=== PATIENT | male | born 1940 | race Caucasian/White ===

== ENCOUNTER 2017-01-03 04:52 | Inpatient (IN) | payer OTHER, BC ==
--- NOTE | 2016-12-24 08:42 | HISTORY & PHYSICAL EXAMINATION ---
DATE OF ADMISSION: CHIEF COMPLAINT: Right knee pain. HISTORY OF PRESENT ILLNESS: Mr. Kebede is a pleasant 76-year-old male with a 3-4 month history of right knee pain. The patient rates his pain at 8/10. He has pain with his daily activities. He has limited standing and walking tolerance. Pain is worse with weightbearing. The patient uses a cane to ambulate on a daily basis. He has failed injections and anti-inflammatories. He is unable to perform home exercise program due to pain. He has currently failed conservative treatment and is scheduled for elective right knee replacement with Dr. Buchanan. PAST MEDICAL HISTORY: Hypertension, borderline diabetes with A1c of 6.2. He denies heart disease or DVT. PAST SURGICAL HISTORY: Right knee arthroscopy. SOCIAL HISTORY: The patient denies alcohol or tobacco use. He lives in a 2-story home with his and is retired. FAMILY HISTORY: Negative for DVT. MEDICATIONS: Lipitor 40 mg daily, atenolol 50 mg daily, amlodipine 10 mg daily, losartan 100 mg daily, Tylenol 1000 mg p.r.n., aspirin 81 mg daily. ALLERGIES: PENICILLIN, TETRACYCLINE, OFLOXACIN AND CODEINE. REVIEW OF SYSTEMS: See HPI. Ten other systems reviewed, all negative. PHYSICAL EXAMINATION: VITAL SIGNS: Height 5 feet 10 inches, weight 235 pounds, BMI is 34. GENERAL: This is a well-developed, well-nourished male who is alert and oriented x3. Mood and affect are appropriate. HEENT: Normocephalic, atraumatic. Mucous membranes are moist and intact. NECK: Supple without lymphadenopathy. HEART: Regular rate and rhythm without murmurs, rubs or gallops. LUNGS: Clear to auscultation without wheezes or rhonchi. ABDOMEN: Soft and nontender. Bowel sounds are equal and active. EXTREMITIES: No ecchymosis, redness or warmth. He has varus deformity. He has moderate effusion. Range of motion is from 5-110 degrees with +2 laxity mediolaterally. He is neurovascularly intact with +1 distal edema. X-RAY EXAMINATION: AP and lateral views show joint space narrowing and osteophyte formation. IMPRESSION: Degenerative joint disease, right knee. PLAN: The patient will be admitted for a right total knee arthroplasty with Dr. Buchanan. We will plan on aspirin for DVT prophylaxis. The patient is going to use [facility] for home physical therapy postoperatively.
[2016-12-24 10:03] VITALS: BMI 33.0
--- NOTE | 2016-12-24 10:33 | PAT Medication Instructions ---
Service Date Dec 24, 2016. Current Home Medication List Amiloride/Hctz (Amiloride/Hydrochlorothia 5-50 mg), 0.5 TAB PO QAM Amlodipine Besylate (Norvasc), 10 MG PO QAM Aspirin (Aspirin Ec), 81 MG PO HS Atenolol (Tenormin), 100 MG PO QAM Atorvastatin (Lipitor), 40 MG PO QAM Losartan Potassium (Cozaar), 100 MG PO QAM Metformin Hcl (Glucophage), 500 MG PO for AM Naproxen (Naprosyn), 500 MG PO BID PRN for Pain [Vitamin D], 1 TAB PO QPM Medication Instructions For Your Scheduled Surgery - Check with surgeon for instructions: Naproxen (Naprosyn), 500 MG PO BID PRN for Pain - Hold the following medications 48 hours prior to surgery: Metformin Hcl (Glucophage), 500 MG PO for AM - Hold the following medications the morning of surgery: Amiloride/Hctz (Amiloride/Hydrochlorothia 5-50 mg), 0.5 TAB PO QAM Losartan Potassium (Cozaar), 100 MG PO QAM - Take the following medications the morning of surgery with a sip of water: Atenolol (Tenormin), 100 MG PO QAM Atorvastatin (Lipitor), 40 MG PO QAM Amlodipine Besylate (Norvasc), 10 MG PO QAM - Take the following medications as scheduled the night before surgery: [Vitamin D], 1 TAB PO QPM Aspirin (Aspirin Ec), 81 MG PO HS If you have any questions please call us at [phone] or [phone] or [phone]
--- NOTE | 2016-12-24 11:12 | DIAGNOSTIC IMAGING REPORT ---
TWO VIEW CHEST CLINICAL HISTORY: Preoperative examination. FINDINGS: PA and lateral chest radiographs are compared to study dated 10/19/2015. The heart is mildly enlarged. The pulmonary vasculature is noncongested. There is atherosclerotic calcification of the thoracic aorta. There are low lung volumes with elevation of the right hemidiaphragm and bibasilar atelectasis. No airspace consolidation is seen typical for pneumonia and there is no pleural effusion. A right apical pulmonary nodule is questioned. There is no pneumothorax. The skeletal structures are osteopenic. Degenerative change and DISH are noted in the thoracic spine. IMPRESSION: 1. Cardiomegaly and low lung volumes. There is no active disease in the chest. 2. There is a questionable right apical nodular density. This is nonspecific and may represent artifact. Correlation with a CT scan of the chest is recommended for further interrogation and to exclude underlying pulmonary lesion. Electronically signed by: Shemar Spencer M.D. 12/24/2016 11:10 AM Dictated Date/Time: 12/24/2016 11:08 AM
[2016-12-24 11:20] LABS: BASO % 0.4 %; BASO ABS # 0.02 K/uL (0-0.2); COMPLETE YES; EOS % 2.1 %; HEMATOCRIT 43.2 % (42-52); IG% 0.2 %; LYMPH % 23.7 %; LYMPH ABS # 1.27 K/uL (1.2-3.4); MEAN CELL VOLUME 86.4 fL (80-100); MEAN CORPUSCULAR HEMOGLOBIN 29.6 pg (25-34); MEAN CORPUSCULAR HGB CONC 34.3 g/dl (32-36); MEAN PLATELET VOLUME 10.6 fL (7.4-10.4); NEUT % 67.6 %; PLATELET COUNT 125 K/uL (130-400); WHITE BLOOD COUNT 5.36 K/uL (4.8-10.8)
[2016-12-24 11:23] LABS: URINE APPEARANCE CLEAR (CLEAR); URINE BILIRUBIN NEG (NEG); URINE COLOR YELLOW; URINE EPITHELIAL CELL AUTO >30 /lpf (0-5); URINE NITRITE NEG (NEG); URINE PH 6.5 (4.5-7.5); URINE SPECIFIC GRAVITY 1.017 (1.000-1.030); UROBILINOGEN NEG (NEG)
[2016-12-24 11:24] LABS: MANUAL MICROSCOPIC REQUIRED? NO; REVIEW REQ? YES
[2016-12-24 11:28] LABS: INR 1.1 (0.9-1.1); PARTIAL THROMBOPLASTIN RATIO 1.1; PROTHROMBIN TIME (PATIENT) 11.3 SECONDS (9.0-12.0)
[2016-12-24 12:45] LABS: CREATININE 0.8 mg/dl (0.60-1.40)
[2016-12-24 12:46] LABS: BUN/CREATININE RATIO 20.1 (10-20); CALCIUM 8.8 mg/dl (8.5-10.1); POTASSIUM 3.9 mmol/L (3.5-5.1)
[2016-12-24 13:59] LABS: ESTIMATED AVERAGE GLUCOSE 160 mg/dl; HA1C FLAG Normal (Normal)
[~2017-01-03] VITALS: Ht 177.8 cm; Wt 106.5 kg
[2017-01-03] VITALS (9 sets, daily range): BP systolic 119–154; BP diastolic 62–80; PULSE 62–82; TEMP 36.5–37.1; O2SAT 93–97; Ht 177.8 cm; Wt 106.5 kg
[~2017-01-03 04:52] MED LIST: AMLH/550 PO; AMLO10TA4 PO; ASPI81TA28 PO; ATEN100T PO; ATOR-24 PO; GLC/500 PO; LOSA1TAB38 PO; NAPR-1169 PO; VITAMIN D PO
[2017-01-03] MEDS ORDERED: CeleBREX 200 MG CAP PO SCH (06:00)
[2017-01-03] MEDS ORDERED: DEXAMETHASONE 4 MG TAB PO SCH (06:00)
[2017-01-03] MEDS ORDERED: GABAPENTIN 300 MG CAP PO SCH (06:00)
[2017-01-03] MEDS ORDERED: LACTATED RINGER'S 1000ML 500 ML IV ONE (06:00)
[2017-01-03] MEDS ORDERED: METOCLOPRAMIDE HCL 10 MG TAB PO SCH (06:00)
[2017-01-03] MEDS ORDERED: LACTATED RINGER'S 1000ML 1,000 ML IV SCH (06:00)
[2017-01-03] MEDS ORDERED: ACETAMINOPHEN 500 MG TAB PO SCH (06:00)
[2017-01-03] MEDS ORDERED: LACTATED RINGER'S 1000ML IV SCH (06:00)
[2017-01-03] MEDS ORDERED: CEFAZOLIN 2000MG IV PUSH 10 ML IV SCH (06:00)
[2017-01-03] MEDS ORDERED: ROPIVACAINE 5MG/ML 30 ML 150 MG, BUPIVACAINE 0.5% MPF INJ 30 ML, EpINEphrine HCL INJ 0.... INFIL SCH ×8 (06:00)
[2017-01-03] MEDS ORDERED: CLINDAMYCIN 600 MG/54 ML D5W 54 ML IV SCH (06:00)
[2017-01-03] MEDS ORDERED: FAMOTIDINE 20 MG TAB PO SCH (06:00)
[2017-01-03] MEDS: TRANEXAMIC ACID INJ 1,000 MG in SODIUM CHLORIDE 0.9% 100ML 100 ML IV SCH ×2 (06:01→06:15)
[2017-01-03] MEDS ORDERED: BUPIVACAINE 0.5 % 5 MG/1 ML PF 10ML VIAL ONE (06:31)
[2017-01-03] MEDS ORDERED: ROPIVACAINE 0.5% 5 MG/ML 30 ML VIAL ONE (06:31)
[2017-01-03] MEDS ORDERED: POVIDONE-IODINE OP SOLN 30 ML BTL ONE (06:41)
[2017-01-03] MEDS ORDERED: ORTHO JOINT ANESTHETIC ONE (06:41)
[2017-01-03] MEDS ORDERED: BACITRACIN 50000 UNIT VIAL ONE (06:41)
[2017-01-03] MEDS ORDERED: FENTANYL CITRATE INJ 50 MCG/1 ML 2 ML VIAL ONE (06:43)
[2017-01-03] MEDS ORDERED: MIDAZOLAM HCL 1 MG/ML 2ML VIAL ONE (06:43)
--- NOTE | 2017-01-03 07:07 | History & Physical Bridge Note ---
H&P Re-Evaluation Bridge Note: I have examined the patient, reviewed the History & Physical and in the interval since the performance of the History & Physical I have noted the following changes of clinical significance: No changes noted
[2017-01-03] MEDS ORDERED: HYDROmorphone INJ 2 MG/ML SYR/VIAL IV PRN (07:30)
[2017-01-03] MEDS ORDERED: ONDANSETRON INJ 2 MG/ML 2 ML VIAL IV PRN ×2 (07:30→08:45)
[2017-01-03] MEDS ORDERED: ATROPINE SULFATE 0.1 MG/ML 5ML SYR IV PRN (07:30)
[2017-01-03] MEDS ORDERED: PHENYLEPHRINE 100MCG/ML 5ML SYR IV PRN (07:30)
[2017-01-03] MEDS ORDERED: EpHEDrine SULFATE INJ 50 MG/ML AMP IV PRN (07:30)
[2017-01-03] MEDS ORDERED: LIDOCAINE HCL 2% 2 ML VIAL (20MG/ML) ONE (07:49)
[2017-01-03] MEDS ORDERED: PROPOFOL IV EMULSION 10 MG/ML 20 ML VIAL IV ONE (07:49)
[2017-01-03] MEDS ORDERED: ONDANSETRON INJ 2 MG/ML 2 ML VIAL ONE (07:49)
--- NOTE | 2017-01-03 08:11 | [facility] Operative Report ---
Operative Report Operative Date Jan 03, 2017. Pre-Operative Diagnosis Right knee degenerative joint disease Post-Operative Diagnosis same as pre-operative Procedure(s) Performed Right total knee arthroplasty-cemented Jennifer Chaudhry nephew en bloc total knee arthroplasty size 6 femur 6 tibia Poly-[address] Jovan Buchanan Doors Prefitter Surgeon(s) ZEINAB Sewell and Dr. Ni Estimated Blood Loss 5 mL Findings Patient presents with severe end-stage varus alignment DJD subchondral sclerosis osteophyte formation Nourse wants to conservative therapy. Specimens Specimen A: Right knee bone and tissue Complication(s) None Disposition Recovery Room / PACU Indications Patient presented failed attempts at conservative management with varus alignment right knee subchondral sclerosis cystic changes and marginal osteophytes DJD (conservative management including physical therapy anti- inflammatories relative rest and presents for total knee arthroplasty Description of Procedure After proper prepping and draping of the Right lower extremity anterior midline incision was made over the region of the extensor extensor mechanism after meticulous hemostasis was obtained and maintained in subcutaneous tissues a medial parapatellar incision was made The patella was subluxed lateralward the medial lateral gutter were cleaned from any hypertrophic synovitis and scar tissue of the distal femoral block was placed and the distal femoral osteotomy cut was made subsequently the chamfers anterior and posterior osteotomy cuts were made utilizing the 4-in-1 block the tibia was subsequently subluxed anteriorward medial and ateral meniscal remnants were excised in their entirety remnants of the anterior and posterior cruciate ligaments were excised in their entirety excellent exposure of the proximal tibia was obtained the tibial osteotomy guide was placed on the proximal tibial osteotomy cut was made once again the knee was irrigated with copious amounts of sterile saline solution the patella was subsequently everted lateralward thickened scar tissue around the patella was removed the patella was subsequently cut utilizing a freehand technique and was drilled prepared for final preparation and placement of patella socially flexion-extension gaps were checked and the equal and symmetric trials were placed to the appropriate femoral and tibial trials with poly-spacer being placed for equal flexion and extension gaps and full range of motion including extension to 0 and flexion to 140 the trial components after having been taken to recovery range of motion was subsequently removed meticulous hemostasis was obtained and maintained subsequently a knee block injection of joint cocktail including ropivacaine 0.5% 150 mg. Bupivacaine 0.5 % epinephrine 1-200,030 mL's toradol 30 mg dexamethasone 4 mg ketamine 10 mg clonidine 100 micrograms normal saline solution 30 mg was infiltrated into the soft tissues of the posterior knee medial lateral gutters and periosteal synovium special attention was paid to protect neurovascular structures at all times subsequently trial components having been removed the knee was irrigated with sterile saline solution. debris was removed the proximal tibia was subsequently prepared and was made ready for the placement of the tibial component tibial component was also cemented and tamped into position the femoral component was subsequently placed and cemented in the position the patellar component was subsequently cemented in position because hemostasis once again obtained and maintained wound having been thoroughly irrigated with debridement and debridement lavage was performed as well as a medial parapatellar incision closed with #1 Vicryl in interrupted fashion subcutaneous was closed with #2 Vicryl skin was closed with skin clips. DR Rocha and JAKE were necessary for prepping and drapping as well as wound closure of deep fascia Sub cutaneous tissue and skin and was necessary for the case. A sterile compressive dressing was placed patient was taken to recovery in stable condition of report dictated by Dewayne I attest to the content of the Intraoperative Record and any orders documented therein. Any exceptions are noted below. I attest to the content of the Intraoperative Record and any orders documented therein. Any exceptions are noted below.
[2017-01-03] MEDS ORDERED: ZOLPIDEM TARTRATE 5 MG TAB PO PRN (08:45)
[2017-01-03] MEDS ORDERED: OXYCODONE HCL IR 5 MG TAB (IMMEDIATE RELEASE) PO PRN (08:45)
[2017-01-03] MEDS ORDERED: ALUMINUM/MAGNESIUM/SIMETH (MAALOX MAX) 30 ML UDC PO PRN (08:45)
[2017-01-03] MEDS ORDERED: SOD PHOSPHATE/SOD BIPHOSPHATE ENEMA 132 ML BTL PR PRN (08:45)
[2017-01-03] MEDS ORDERED: MoRPHine SULFATE 2 MG/ML CARP IV PRN (08:45)
[2017-01-03] MEDS ORDERED: BISACODYL 10 MG SUPP PR PRN (08:45)
[2017-01-03] MEDS ORDERED: MAGNESIUM HYDROXIDE SUSP 30 ML UDC PO PRN (08:45)
[2017-01-03] MEDS ORDERED: PHARMACY GLYCEMIC MGMT CONSULT PRN (09:18)
--- NOTE | 2017-01-03 09:29 | DIAGNOSTIC IMAGING REPORT ---
R KNEE 1 OR 2 VIEWS ROUTINE CLINICAL HISTORY: Degenerative arthritis COMPARISON: None. DISCUSSION: There are postsurgical changes of a total right knee arthroplasty and patellar resurfacing. Overlying surgical drains are evident. The femoral and tibial components appear well seated. There is air in soft tissues consistent with recent surgery IMPRESSION: Postsurgical changes of a total right knee arthroplasty. Electronically signed by: Arnold Redd M.D. 01/03/2017 9:28 AM Dictated Date/Time: 01/03/2017 9:27 AM
--- NOTE | 2017-01-03 09:53 | Anesthesiology Progress Note ---
Anesthesia Post Op Note Date & Time Jan 03, 2017 at 09:53 Vital Signs Pain Intensity: 0 Vital Signs Past 12 Hours Date Time Temp Pulse Resp B/P (MAP) Pulse Ox O2 Delivery O2 Flow Rate FiO2 01/03/17 09:40 36.6 63 18 118/63 94 Nasal Cannula 2 01/03/17 09:30 62 16 122/65 93 Nasal Cannula 2 01/03/17 09:20 63 18 120/67 95 Nasal Cannula 2 01/03/17 09:10 62 16 115/62 93 Nasal Cannula 2 01/03/17 09:00 37.5 66 14 116/67 96 Nasal Cannula 2 01/03/17 08:50 67 20 113/63 94 Nasal Cannula 2 01/03/17 08:40 36.7 67 16 91/65 97 Oxymask 10 01/03/17 05:40 37.1 69 20 138/80 93 Room Air Notes Mental Status: alert / awake / arousable, participated in evaluation Pt Amnestic to Procedure: Yes Nausea / Vomiting: adequately controlled Pain: adequately controlled Airway Patency, RR, SpO2: stable & adequate BP & HR: stable & adequate Hydration State: stable & adequate Anesthetic Complications: no major complications apparent
[2017-01-03] MEDS ORDERED: DEXTROSE 50% 50 ML SYR IV PRN (10:30)
[2017-01-03] MEDS ORDERED: GLUCOSE 40% GEL 15 GM TUBE PO PRN (10:30)
[2017-01-03] MEDS ORDERED: GLUCAGON FOR INJ 1 MG VIAL SQ PRN (10:30)
[2017-01-03] MEDS ORDERED: GLUCOSE 10 TABS/TUBE PO PRN (10:30)
--- NOTE | 2017-01-03 10:50 | Pharmacy Progress Note ---
Glycemic Control Intl Consult Date of Service Jan 03, 2017. Scope Glycemic Pharmacist consulted by Aziza Paul on 01/03/17 for glycemic control and to write orders per [facility] inpatient glycemic control protocol Objective Weight (Kilograms): 106.500 Accuchecks BSG (last 24hrs): Test 01/03/17 05:40 01/03/17 08:46 Bedside Glucose 161 mg/dl (70-99) 175 mg/dl (70-99) HbA1c Test 12/24/16 10:38 Hemoglobin A1c 7.2 % (4.5-5.6) H Recent Pertinent Medications Outpatient Anti-diabetic Regimen: * metformin 500 mg po qAM prn * A1c = 7.2 % 12/24/16 Risk Factors for Insulin Resistance: * Steroids: Orthomix (contains Dex 4 mg) + Dexamethasone 8 mg PO pre-op, 8 mg PO on POD #1 * Recent Surgery: POD #0 R-TKA * Diet: T2DM Assessment & Plan ASSESSMENT: * 76 yr old T2DM male admitted for R TKA. * Most recent A1c of 7.4% managed on metformin as an outpatient. * Will hold oral agents for admission and utilize SQ basal bolus insulin regimen which is the recommended regimen for inpatient glycemic control. * Will initiate weight based insulin dosing for insulin kat patient and titrate based on BSG trends. * Will be aggressive with dosing on POD #0 due to potential for steroid induced hyperglycemia. * ADA & AACE recommend a goal blood sugar range 140-180 mg/dl for the majority of critically ill & non-critically ill patients. However, more stringent targets may be selected in individual cases. Will utilize more stringent goal of 110-140mg/dl based on patient age & comorbidities. Additionally, tighter glycemic control is warranted to facilitate wound/infection healing. PLAN FOR INPATIENT GLYCEMIC CONTROL: * Holding outpatient oral diabetes medications * Basal insulin * Lantus 20 units (~0.2 units/kg) SQ now * Lantus 0-18 units SQ qPM * 0 units for BSG < 100 mg/dL, 10 units for BSG 100-140, 18 units for BSG > 140 mg/dL * Correctional Insulin with NOVOLOG per scale ACHS or Q6hrs while NPO * Goal Range: Low 110 mg/dL - High 140 mg/dL * Correction Factor: 20 mg/dL/unit * Nutritional / Prandial insulin per carb ratio of 1 unit per 7 grams CHO consumed DISCHARGE RECOMMENDATIONS: * Continue metformin on discharge * Recommend increasing dose by 500 mg/week as tolerated to goal of 1,000 mg PO BID * Administer with meals to limit GI side effects * Please note that the plan above was derived based on current level of insulin resistance and hospital stress. These recommendations are appropriate for inpatient admission only. Plan of care upon discharge will need to be reassessed to avoid potential outpatient hypo/hyperglycemia. Thank you.
[2017-01-03] MEDS ORDERED: INSULIN GLARGINE SOLOSTAR 100 UNITS/ML 3 ML PEN SC ONE (11:00)
[2017-01-03] MEDS: SODIUM CHLORIDE 0.9% 1000ML 1,000 ML IV SCH ×2 (12:23→20:15)
[2017-01-03] MEDS: KETOROLAC TROMETHAMINE 15 MG/ML VIAL IV. SCH ×3 (12:23→23:48)
[2017-01-03] MEDS ORDERED: INSULIN REGULAR 8 UNITS in SYRINGE 7.92 ML IV ONE (13:15)
[2017-01-03] MEDS: INSULIN ASPART 100 UNITS/ML 3 ML PEN SC SCH ×4 (13:16→23:52)
[2017-01-03] MEDS: ACETAMINOPHEN 500 MG TAB PO SCH ×2 (13:17→21:51)
[2017-01-03] MEDS: CLINDAMYCIN IV 600 MG in DEXTROSE 5% 50ML 50 ML IV SCH ×2 (16:49→23:47)
[2017-01-03] MEDS: ASPIRIN 81 MG ECTAB PO SCH (21:50)
[2017-01-03] MEDS: SENNA 8.6 MG TAB PO SCH (21:50)
[2017-01-03] MEDS: ATORVASTATIN 20 MG TAB PO SCH (21:50)
[2017-01-03] MEDS: INSULIN GLARGINE SOLOSTAR 100 UNITS/ML 3 ML PEN SC SCH (21:56)
[2017-01-04 03:50] VITALS: BP 140/75; PULSE 69; TEMP 36.5; O2SAT 96
[2017-01-04] MEDS: INSULIN ASPART 100 UNITS/ML 3 ML PEN SC SCH ×5 (04:19→21:44)
[2017-01-04] MEDS: SODIUM CHLORIDE 0.9% 1000ML 1,000 ML IV SCH (05:24)
[2017-01-04] MEDS: KETOROLAC TROMETHAMINE 15 MG/ML VIAL IV. SCH (05:25)
[2017-01-04] MEDS: ACETAMINOPHEN 500 MG TAB PO SCH ×3 (05:25→21:28)
[2017-01-04 07:24] LABS: HEMATOCRIT 34.3 % (42-52); MEAN CELL VOLUME 85.5 fL (80-100); MEAN CORPUSCULAR HEMOGLOBIN 29.2 pg (25-34); MEAN CORPUSCULAR HGB CONC 34.1 g/dl (32-36); MEAN PLATELET VOLUME 10.4 fL (7.4-10.4); PLATELET COUNT 108 K/uL (130-400); RED BLOOD COUNT 4.01 M/uL (4.7-6.1); WHITE BLOOD COUNT 11.66 K/uL (4.8-10.8)
[2017-01-04] MEDS ORDERED: DEXAMETHASONE 4 MG TAB PO ONE (07:30)
[2017-01-04 07:36] VITALS: BP 137/67; PULSE 68; TEMP 36.4; O2SAT 91
[2017-01-04] MEDS ORDERED: NURSING VERBAL MED ORDER ONE (08:00)
[2017-01-04 08:01] LABS: BUN/CREATININE RATIO 21.2 (10-20); CALCIUM 8.1 mg/dl (8.5-10.1); CREATININE 0.89 mg/dl (0.60-1.40); POTASSIUM 3.8 mmol/L (3.5-5.1)
--- NOTE | 2017-01-04 08:08 | Orthopedic Progress Note ---
Orthopedic Progress Note Date of Service Jan 04, 2017. Subjective Post OP Day: 1 Reports: feeling well, Denies: complaints Additional Notes: No complaints this AM. Pain controlled. Objective calves soft nontender, N/V intact, dressing C/D/I, A&O x3, toes mobile, hemovac drainage (150ml latest shift) Date Time Temp Pulse Resp B/P (MAP) Pulse Ox O2 Delivery O2 Flow Rate FiO2 01/04/17 07:36 36.4 68 18 137/67 (90) 91 Room Air 01/04/17 03:50 36.5 69 18 140/75 (96) 96 Room Air 01/03/17 23:43 Room Air 01/03/17 22:50 37.0 72 18 143/72 (95) 93 Room Air 01/03/17 19:20 36.6 82 18 135/70 (91) 93 Room Air 01/03/17 16:40 Nasal Cannula 2.0 01/03/17 16:15 37.0 79 18 154/76 (102) 97 Nasal Cannula 2.0 01/03/17 13:09 36.5 69 20 119/66 (83) 96 Nasal Cannula 2.0 01/03/17 12:09 71 18 123/66 (85) 95 Nasal Cannula 2.0 01/03/17 11:13 68 19 133/68 (89) 95 Nasal Cannula 2.0 01/03/17 10:40 36.5 62 17 136/68 (90) 96 Nasal Cannula 2.0 01/03/17 10:10 37.0 66 16 120/62 (81) 94 Nasal Cannula 2.0 01/03/17 10:10 Nasal Cannula 2.0 01/03/17 10:10 94 Nasal Cannula 2.0 01/03/17 09:50 62 18 120/64 92 Nasal Cannula 2 01/03/17 09:40 36.6 63 18 118/63 94 Nasal Cannula 2 01/03/17 09:30 62 16 122/65 93 Nasal Cannula 2 01/03/17 09:20 63 18 120/67 95 Nasal Cannula 2 01/03/17 09:10 62 16 115/62 93 Nasal Cannula 2 01/03/17 09:00 37.5 66 14 116/67 96 Nasal Cannula 2 01/03/17 08:50 67 20 113/63 94 Nasal Cannula 2 01/03/17 08:40 36.7 67 16 91/65 97 Oxymask 10 Laboratory Results 24 Hours: Test 01/04/17 06:31 Hematocrit 34.3 % Hemoglobin 11.7 g/dL Assessment & Plan Assessment: POD 1 s/p Right TKA Plan: PT/OT Planning for [facility] services Pt for possible dc today. He will decide later this afternoon. Inhouse Planning Pain Management: Toradol, Morphine, PO Tylenol, Oxy IR DVT Prophylaxis: TEDs, SCDs, ASA Discharge Planning Discharge Planning: home with home health
[2017-01-04] MEDS ORDERED: RXC5 PO (08:36)
[2017-01-04] MEDS ORDERED: ASPI81TA28 PO (08:36)
[2017-01-04] MEDS ORDERED: SNK PO (08:36)
[2017-01-04] MEDS ORDERED: ACET-24 PO (08:36)
--- NOTE | 2017-01-04 08:41 | Discharge Instructions ---
Discharge Instructions Date of Service Jan 04, 2017. Admission Reason for Admission: Right Knee Osteoarthritis Discharge Discharge Diagnosis / Problem: Right Knee Djd Discharge Goals Goal(s): Decrease discomfort, Improve function Activity Recommendations Activity Limitations: per Instructions/Follow-up section Weightbearing Status: Right weightbearing (as tolerated) . Instructions / Follow-Up Instructions / Follow-Up ACTIVITY RECOMMENDATIONS: SELF CARE INSTRUCTIONS AFTER TOTAL KNEE REPLACEMENT A. You may need to continue a physical therapy program after discharge from the hospital. There are several options available to you. Your doctor will assist you in selecting the best one for you. 1. An out-patient facility 2 to 3 times a week for therapy or home therapy. 2. Continue working on all exercises taught to you in the hospital. Your goals should be to increase bending of your knee to 90 degrees and beyond and to fully straighten your knee. B. You may progress at your own pace from walking with a walker or crutches to a cane; then to no assistive devices. C. Make walking a part of your daily routine. Be up as much as comfortable with rest periods throughout the day. Rest with leg elevation is very important. Use the ice wrap frequently for the first 3-4 weeks. D. There are no restrictions on activities. You may ride in a car, shop, participate in universal banker and all social activities. E. Wear the long elastic stockings (BAMBI hose) 20 hours a day for 2 weeks after surgery. They can be removed several times a day for laundering and for a bath. F. You may shower, no tub baths until cleared by your doctor. SPECIAL CARE INSTRUCTIONS: VERY IMPORTANT TO READ AND REVIEW A. There are a few signs you need to watch for after you are home. Call [facility] [place] if you notice any of the followin. Increased severe knee pain. Some pain is expected especially when you exercise. 2. Increased swelling in your leg or knee; pain or swelling of the calf muscle in either lower leg. 3. Any fluid drainage from the incision. 4. Shortness of breath or chest pain. B. Please call [facility] [place] at if you have any concerns or questions about your operation or recovery. The doctor or his nurse will return your call promptly. C. You must take antibiotics before dental work, bladder, bowel or other surgery. Your doctor will provide you with a permanent care to carry describing this precaution. IMPORTANT: * REMEMBER TO TAKE ASPIRIN, 81 MG, TWICE DAILY FOR 4 WEEKS UNLESS OTHERWISE DIRECTED. THIS IS YOUR BLOOD THINNER. * HIGH RISK PATIENTS MAY BE PRESCRIBED A STRONGER BLOOD THINNER. THIS WILL BE PROVIDED AT DISCHARGE. * CALL IF INCREASED PAIN, REDNESS, DRAINAGE OR FEVER GREATER THAT 101. * WEAR BAMBI HOSE 20 HOURS PER DAY FOR 2 WEEKS. * DERMABOND Prineo- This is a mesh tape dressing that is covered with glue. It should remain in place until the incision is properly healed, usually 10-14 days. This dressing is designed to naturally slough off. You may trim the excess mesh tape as it peels off. Incision may be briefly wet in a shower. Dry immediately by blotting with a clean, dry towel. Do not bath or swim until instructed by your doctor. Do not scratch, rub, or pick at the dressing. Do not apply any topical ointments or lotions until dressing is completely removed and/or instructed by your doctor. There may be a small piece of suture material at one end of your incision. Do not pull or trim this. If it is bothersome or catching on clothing, you may cover it with a band-aid. FOLLOW UP VISIT: If appointment is not already scheduled: Please call [facility] [place] to make a follow-up appointment for 2 weeks after your surgery at . Current Hospital Diet Patient's current hospital diet: Diabetes Type 2 Diet Discharge Diet Recommended Diet: Diabetes Type 2 Diet Procedures Procedures Performed: Right total knee arthroplasty-cemented Jennifer Chaudhry nepheduardo en bloc total knee arthroplasty size 6 femur 6 tibia Poly-35 oval patella Pending Studies Studies pending at discharge: no Laboratory Results Hemoglobin A1c Test 12/24/16 10:38 Range/Units Estimated Average Glucose 160 mg/dl Hemoglobin A1c 7.2 H 4.5-5.6 % Medical Emergencies . Who to Call and When: Medical Emergencies: If at any time you feel your situation is an emergency, please call 911 immediately. . Non-Emergent Contact Non-Emergency issues call your: Surgeon Call Non-Emergent contact if: temperature is above 101.5, your pain is not controlled, your pain is worsening, wound has increased drainage, wound has increased redness . "Provider Documentation" section prepared by Irving Bernardo. . VTE Core Measure Inpt VTE Proph given/why not?: Other Anticoagulation, T.E.D. Stockings, SCD's [place] Drug Monitoring Program Search Results: patient reviewed within database, no issues identified
[2017-01-04] MEDS: AMILORIDE/HCTZ 5-50 MG TAB PO SCH (09:36)
[2017-01-04] MEDS: PANTOprazole SOD 40 MG TAB PO SCH (09:36)
[2017-01-04] MEDS: LOSARTAN POTASSIUM 50 MG TAB PO SCH (09:37)
[2017-01-04] MEDS: MULTIVITAMIN TAB PO SCH (09:38)
[2017-01-04] MEDS: ASPIRIN 81 MG ECTAB PO SCH ×2 (09:39→21:29)
[2017-01-04] MEDS: AMLODIPINE BESYLATE 5 MG TAB PO SCH (09:40)
[2017-01-04] MEDS: INSULIN GLARGINE SOLOSTAR 100 UNITS/ML 3 ML PEN SC SCH ×2 (09:42→21:43)
[2017-01-04 12:48] VITALS: BP 154/74; PULSE 68; TEMP 36.4
--- NOTE | 2017-01-04 13:09 | Pharmacy Progress Note ---
Glycemic Control Progress Note Date of Service Jan 04, 2017. Scope Glycemic Pharmacist consulted for glycemic control to write orders per [facility] inpatient glycemic control protocol. Objective Accuchecks BSG (last 24hrs): Test 01/03/17 17:11 01/03/17 20:36 01/03/17 23:45 01/04/17 03:48 Bedside Glucose 237 mg/dl (70-99) 251 mg/dl (70-99) 175 mg/dl (70-99) 146 mg/dl (70-99) Test 01/04/17 06:31 01/04/17 08:02 01/04/17 12:06 Random Glucose 153 mg/dl (70-99) Bedside Glucose 155 mg/dl (70-99) 224 mg/dl (70-99) HbA1c: Test 12/24/16 10:38 Hemoglobin A1c 7.2 % (4.5-5.6) H Recent Pertinent Medications Risk Factors for Insulin Resistance: * Steroids: Dexamethasone 8 mg PO on POD #1 * Recent Surgery: POD #1 R-TKA * Diet: T2DM Outpatient Anti-Diabetic Meds Outpatient Anti-diabetic Regimen: * metformin 500 mg po qAM prn * A1c = 7.2 % 12/24/16 Assessment & Plan ASSESSMENT: * 76 yr old T2DM male admitted for R TKA. * BSGs ranged from 146 to 329 mg/dL over the past 24 hours - Pt received 74 units of SQ insulin + 8 units IV regular insulin. * of note, BSG of 329 mg/dL was taken shortly after patient ate two meal trays without carb coverage. * Fasting BSG of 155 mg/dL is near goal. Continue basal insulin per scale based on weight and stress of 1-2. I anticipate Lantus needs to decrease over the next 12 hours. * Post prandial BSGs are elevated due to dexamethasone. Tighten CF/CR. PLAN FOR INPATIENT GLYCEMIC CONTROL: * Resume Metformin 500 mg PO qam on 01/05 * Basal insulin * Lantus 0-18 units SQ BID * 0 units for BSG < 100 mg/dL, 10 units for BSG 100-140, 18 units for BSG > 140 mg/dL * Bolus insulin - tighten * NOVOLOG per scale ACHS * Goal Range: Low 110 mg/dL - High 140 mg/dL * Correction Factor: 15 mg/dL/unit * Nutritional / Prandial insulin per carb ratio of 1 unit per 5 grams CHO consumed * Continue overnight checks with coverage tonight DISCHARGE RECOMMENDATIONS: * Continue metformin on discharge * Recommend increasing dose by 500 mg/week as tolerated to goal of 1,000 mg PO BID * Administer with meals to limit GI side effects * Please note that the plan above was derived based on current level of insulin resistance and hospital stress. These recommendations are appropriate for inpatient admission only. Plan of care upon discharge will need to be reassessed to avoid potential outpatient hypo/hyperglycemia. Thank you.
--- NOTE | 2017-01-04 14:31 | Anesthesiology Progress Note ---
Anesthesia Post Op Note Date & Time Jan 04, 2017 at 14:31 Vital Signs Pain Intensity: 0.0 Vital Signs Past 12 Hours Date Time Temp Pulse Resp B/P (MAP) Pulse Ox O2 Delivery O2 Flow Rate FiO2 01/04/17 12:48 36.4 68 18 154/74 (100) 01/04/17 07:36 36.4 68 18 137/67 (90) 91 Room Air 01/04/17 07:30 Room Air 01/04/17 03:50 36.5 69 18 140/75 (96) 96 Room Air Notes Mental Status: alert / awake / arousable, participated in evaluation Pt Amnestic to Procedure: Yes Nausea / Vomiting: adequately controlled Pain: adequately controlled Airway Patency, RR, SpO2: stable & adequate BP & HR: stable & adequate Hydration State: stable & adequate Neuraxial Anesthesia: sensory block resolved Anesthetic Complications: no major complications apparent
[2017-01-04 15:48] VITALS: BP 144/74; PULSE 66; TEMP 36.5; O2SAT 96
[2017-01-04 20:07] VITALS: BP 145/80; PULSE 70; TEMP 36.5; O2SAT 96
[2017-01-04] MEDS: ATORVASTATIN 20 MG TAB PO SCH (21:29)
[2017-01-04] MEDS: SENNA 8.6 MG TAB PO SCH (21:29)
[2017-01-04 23:35] VITALS: BP 113/57; PULSE 64; TEMP 37.1; O2SAT 94
[2017-01-05] MEDS: INSULIN ASPART 100 UNITS/ML 3 ML PEN SC SCH ×4 (00:01→12:43)
[2017-01-05] MEDS: ACETAMINOPHEN 500 MG TAB PO SCH (05:54)
[2017-01-05 07:29] VITALS: BP 147/77; PULSE 58; TEMP 36.7; O2SAT 95
[2017-01-05] MEDS ORDERED: METFORMIN HCL 500 MG TAB PO SCH (08:30)
--- NOTE | 2017-01-05 08:42 | Orthopedic Progress Note ---
Orthopedic Progress Note Date of Service Jan 05, 2017. Subjective Post OP Day: 2 Reports: feeling well, Denies: chest pain, SOB, nausea / vomiting, light headedness, calf pain Objective calves soft nontender, N/V intact, capillary refill less than 2 sec., dressing C /D/I, A&O x3, toes mobile Date Time Temp Pulse Resp B/P (MAP) Pulse Ox O2 Delivery O2 Flow Rate FiO2 01/05/17 07:29 36.7 58 15 147/77 (100) 95 Room Air 01/05/17 07:20 Room Air 01/05/17 00:00 Room Air 01/04/17 23:35 37.1 64 18 113/57 (75) 94 Room Air 01/04/17 20:07 36.5 70 16 145/80 (101) 96 Room Air 01/04/17 17:00 Room Air 01/04/17 15:48 36.5 66 16 144/74 (97) 96 Room Air 01/04/17 12:48 36.4 68 18 154/74 (100) Assessment & Plan Assessment: POD 2 s/p Right TKA Plan: PT/OT Planning for [facility] services [place] HOME TODAY Inhouse Planning Pain Management: Toradol, Morphine, PO Tylenol, Oxy IR DVT Prophylaxis: TEDs, SCDs, ASA Discharge Planning Discharge Planning: home with home health
[2017-01-05 09:05] VITALS: BP 138/75; PULSE 66
[2017-01-05] MEDS: ASPIRIN 81 MG ECTAB PO SCH (09:05)
[2017-01-05] MEDS: AMILORIDE/HCTZ 5-50 MG TAB PO SCH (09:05)
[2017-01-05] MEDS: AMLODIPINE BESYLATE 5 MG TAB PO SCH (09:05)
[2017-01-05] MEDS: PANTOprazole SOD 40 MG TAB PO SCH (09:06)
[2017-01-05] MEDS: LOSARTAN POTASSIUM 50 MG TAB PO SCH (09:06)
[2017-01-05] MEDS: MULTIVITAMIN TAB PO SCH (09:06)
[2017-01-05] MEDS: INSULIN GLARGINE SOLOSTAR 100 UNITS/ML 3 ML PEN SC SCH (09:18)
[2017-01-05 10:21] VITALS: BP 138/75; PULSE 66; TEMP 36.7; O2SAT 95
[2017-01-05] MEDS ORDERED: INSULIN GLARGINE SOLOSTAR 100 UNITS/ML 3 ML PEN SC SCH (21:00)
--- NOTE | 2017-01-07 08:10 | DISCHARGE SUMMARY ---
DISCHARGE DIAGNOSIS: Degenerative joint disease right knee. SECONDARY DIAGNOSIS: None. CONSULTS: None. COMPLICATIONS: None. PROCEDURE: The patient underwent a right total knee arthroplasty with Dr. Buchanan on 01/03/2017. BRIEF HISTORY: Please see previously dictated history and physical. HOSPITAL SUMMARY: The patient was admitted on the above day for the above procedure. Procedure went without complication. Postop day 1, the patient was feeling well without complaints. He denied chest pain or shortness of breath. Vital signs were stable. He was afebrile. Dressing was clean, dry and intact. He was neurovascularly intact. Calves were soft and nontender. Hemovac drained 150 mL. Hemoglobin was 11.7. The patient began physical therapy per protocol. Postop day 2, the patient was feeling well. He denied chest pain or shortness of breath. Vital signs were stable. He was afebrile. Dressing was clean, dry and intact. He was neurovascularly intact. Calves were soft and nontender. The patient continued to progress with PT. He was discharged home with home physical therapy later that day in stable condition. For further review please see the chart. Lab, x-ray data and discharge instructions as per chart.
== END 2017-01-05 14:07 | disposition home health service (06) | DRG 470 ==
LOC: C.ACU 04:52 → C.3E 07:00 → ENRESERV 09:42
PROVIDERS: ADMIT Orthopaedic Surgery; ATTEND Orthopaedic Surgery
PROC: 0SRT0J9 Replacement of Right Knee Joint, Femoral Surface with Synthetic Substitute, Cemented, Open Approach (ICD-10-PCS; principal; 2017-01-03 07:00)
DX: M17.11 Unilateral primary osteoarthritis, right knee (principal); I10 Essential (primary) hypertension; Z79.82 Long term (current) use of aspirin

== ENCOUNTER 2017-07-18 10:12 | Emergency (ER) | payer OTHER, BC ==
[~2017-07-18] VITALS: Ht 180.3 cm; Wt 106.0 kg
[~2017-07-18 10:12] MED LIST changes: +ACET-24 PO; -NAPR-1169 PO; +RXC5 PO; +SNK PO
[2017-07-18 10:16] VITALS: TEMP 36.8; Ht 180.3 cm; Wt 106.0 kg
[2017-07-18] MEDS ORDERED: ASPI81TA28 PO (11:09)
[2017-07-18] MEDS ORDERED: ONDA4TAB46 PO (11:09)
[2017-07-18] MEDS ORDERED: CHOL100010 PO (11:09)
[2017-07-18] MEDS ORDERED: SODIUM CHLORIDE 0.9% 500ML 500 ML IV STA (11:11)
[2017-07-18] MEDS ORDERED: SODIUM CHLORIDE 0.9% 1000ML 1,000 ML IV STA (11:11)
[2017-07-18] MEDS ORDERED: FENTANYL CITRATE INJ 50 MCG/1 ML 2 ML VIAL IV STA (11:11)
[2017-07-18] MEDS ORDERED: ONDANSETRON INJ 2 MG/ML 2 ML VIAL IV STA (11:11)
[2017-07-18 11:35] LABS: BASO % 0.2 %; BASO ABS # 0.01 K/uL (0-0.2); EOS % 1.2 %; EOS ABS # 0.07 K/uL (0-0.5); HEMATOCRIT 40.8 % (42-52); HEMOGLOBIN 14.3 g/dL (14.0-18.0); IG# 0.01 K/uL (0.00-0.02); LYMPH % 9.8 %; LYMPH ABS # 0.58 K/uL (1.2-3.4); MEAN CORPUSCULAR HEMOGLOBIN 29.8 pg (25-34); MEAN PLATELET VOLUME 9.7 fL (7.4-10.4); MONO % 10.3 %; MONO ABS # 0.61 K/uL (0.11-0.59); NEUT % 78.3 %; NEUT ABS # 4.64 K/uL (1.4-6.5); PLATELET COUNT 123 K/uL (130-400); RED CELL DISTRIBUTION WIDTH CV 13.7 % (11.5-14.5); RED CELL DISTRIBUTION WIDTH SD 42.4 fL (36.4-46.3); WHITE BLOOD COUNT 5.92 K/uL (4.8-10.8)
[2017-07-18 11:55] LABS: ALBUMIN 3.2 gm/dl (3.4-5.0); CALCIUM 8.6 mg/dl (8.5-10.1); CREATININE 1.35 mg/dl (0.60-1.40); POTASSIUM 3.9 mmol/L (3.5-5.1)
[2017-07-18 11:58] LABS: TOTAL PROTEIN 7.6 gm/dl (6.4-8.2)
--- NOTE | 2017-07-18 12:07 | DIAGNOSTIC IMAGING REPORT ---
ABDOMEN AND PELVIS CT WITHOUT CONTRAST CT DOSE: 1370.45 mGy.cm HISTORY: Acute right-sided flank pain R flank pain TECHNIQUE: Multiaxial CT images of the abdomen and pelvis were performed without contrast. A dose lowering technique was utilized adhering to the principles of ALARA. COMPARISON STUDY: CT abdomen and pelvis 10/19/2015 FINDINGS: Minimal subsegmental bibasilar atelectasis/scarring. Costophrenic granuloma to about the left lung base. Prominent perifissural lymph nodes at the level of the right lung base measure up to 4 mm. There is no pneumatosis or pneumoperitoneum identified. Imaged inferior cardiac chambers are mildly enlarged with coronary arterial calcifications noted. Circumscribed 12 mm low attenuating lesion of the left hepatic lobe adjacent to the zach hepatis is indeterminate however suggests hepatic cyst. No intrahepatic biliary ductal dilation. The spleen, gallbladder, pancreas and adrenal glands are within normal limits. Multiple renal sinus cysts are again noted bilaterally. Large cyst of the superior pole left kidney measures up to 6.9 cm. Mildly hyperattenuating 1.3 cm lesion of the medial aspect inferior pole left kidney is seen on image 265 series 3, previously measuring 10 mm on study dated 10/19/2015. There is mild to moderate right-sided hydroureteronephrosis with moderate perinephric and periureteral inflammatory stranding. There is a 3 mm calculus of the distal right ureter. Multiple layering bladder calculi are again noted with mild bladder wall thickening. Partial distention of the bladder with mild perivesicular stranding. Prostamegaly. Nonobstructing calculi are seen bilaterally measuring up to 3 mm. No left-sided hydronephrosis. Small bilateral fat filled inguinal hernias. Indeterminate 11 x 11 mm soft tissue nodule within the right para median tissues anterior to the urinary bladder, image 441 series 3, unchanged from comparison and possibly reflecting a lymph node. Moderate atherosclerosis of the aorta without aneurysm. No bulky adenopathy. There is no bowel obstruction or focal bowel wall thickening. Colonic diverticulosis without diverticulitis. Moderate stool volume suggests probable constipation. The appendix appears normal. Soft tissues are unremarkable. The bones appear intact. Severe multilevel facet arthrosis. Mild bone demineralization. Multilevel intervertebral disc space narrowing with spondylosis. IMPRESSION: 1. Mild to moderate right-sided hydroureteronephrosis with a 3 mm calculus of the distal right ureter, 11 mm proximal to the ureterovesicular junction. Multiple bladder calculi as well as nonobstructing bilateral nephrolithiasis redemonstrated. 2. Prostamegaly with bladder wall thickening and perivesicular inflammatory stranding suggesting sequela of chronic bladder outlet obstruction. Correlate with urinalysis to exclude cystitis. Unchanged soft tissue nodule anterior to the urinary bladder suggesting a lymph node. 3. Bilateral renal cysts and renal sinus cysts with interval enlargement of a mildly hyperattenuating 1.3 hyperattenuating lesion of the medial aspect inferior pole left kidney, previously measuring 10 mm, possibly reflecting a proteinaceous or hemorrhagic cyst. 4. Extensive colonic diverticulosis without diverticulitis. 5. Additional findings as above. Electronically signed by: Nathan Mcmahon M.D. 07/18/2017 12:06 PM Dictated Date/Time: 07/18/2017 11:55 AM
[2017-07-18] MEDS ORDERED: OXYC1TAB3 PO (13:54)
[2017-07-18 13:58] VITALS: BP 148/76; PULSE 70; O2SAT 95
--- NOTE | 2017-07-18 14:19 | EMERGENCY ROOM VISIT NOTE ---
History Report prepared by Edouard: Rigoberto Muhammad Under the Supervision of: Dr. Amina Rich M.D. First contact with patient: 10:49 Chief Complaint: FLANK PAIN Stated Complaint: KIDNEY,STIMACH ACHE History of Present Illness The patient is a 76 year old male who presents to the Emergency Room with complaints of constant right flank pain beginning four days ago. His pain is slightly worsened with deep breathing. The patient has not noticed any correlation with eating. He also complains of nausea, and resolved lower abdominal pain. He feels that his lower abdominal pain was related to gas as it was moving around a lot. The patient denies pain radiation, urinary symptoms, fevers, or vomiting. He notes that he urinates frequently at baseline, but this has been slightly improved over the past few days. He has a history of enlarged prostate. Source of History: patient Onset: Four days ago Position: other (right flank) Timing: constant Modifying Factors (Worsening): breathing Associated Symptoms: + nausea, + abdominal pain (resolved, lower), No fevers , No vomiting, No urinary symptoms Review of Systems See HPI for pertinent positives & negatives. A total of 10 systems reviewed and were otherwise negative. Past Medical & Surgical Medical Problems: (1) DIAB LM WO COMPL, TYPE II OR UNSPEC TYPE, NOT UNCNTRLD (2) Enlarged prostate (3) HYPERTENSION NOS (4) Right knee DJD Family History No pertinent family history stated. Social History Smoking Status: Never Smoker Marital Status: Housing Status: lives with significant other Occupation Status: retired Current/Historical Medications Scheduled Acetaminophen (Sb Non-Aspirin Extra Stre), 1,000 MG PO Q8H Amiloride/Hctz (Amiloride/Hydrochlorothia 5-50 mg), 0.5 TAB PO QAM Amlodipine Besylate (Norvasc), 10 MG PO QAM Aspirin (Aspirin Ec), 81 MG PO DAILY Atenolol (Tenormin), 100 MG PO QAM Atorvastatin (Lipitor), 40 MG PO QAM Cholecalciferol (Vitamin D), 1,000 UNITS PO DAILY Losartan Potassium (Cozaar), 100 MG PO QAM Scheduled PRN Metformin Hcl (Glucophage), 500 MG PO for AM Ondansetron Hcl (Zofran), 4 MG PO Q4H PRN for Nausea Oxycodone HCl (Oxycodone HCl), 5-10 MG PO Q4H PRN for Pain Oxycodone Immediate Rel Tab (Roxicodone Ir), 5 MG PO Q6H PRN for Severe Pain Allergies Coded Allergies: Penicillins (Verified Allergy, Mild, hives, 07/18/17) Sulfa Drugs (Verified Allergy, Mild, HIVES, 07/18/17) Tetracyclines (Verified Allergy, Mild, HIVES, 07/18/17) Codeine (Verified Allergy, Unknown, ITCHING, 07/18/17) Ofloxacin (Verified Allergy, Unknown, UNKNOWN, 07/18/17) Oxytetracycline (Verified Allergy, Unknown, HIVES, 07/18/17) Physical Exam Vital Signs Date Time Temp Pulse Resp B/P (MAP) Pulse Ox O2 Delivery O2 Flow Rate FiO2 07/18/17 13:58 70 17 148/76 95 07/18/17 13:51 70 17 148/76 95 Room Air 07/18/17 12:14 66 17 147/80 96 Room Air 07/18/17 11:30 71 17 137/93 95 Room Air 07/18/17 10:16 36.8 76 20 146/85 96 Room Air Physical Exam Vital signs reviewed. General: Well-appearing male, in no significant distress. HEENT: No scleral icterus, PERRLA, neck supple. Atraumatic. Cardiovascular: Regular rate and rhythm, no extra sounds. Pulmonary: Clear to auscultation bilaterally, normal work of breathing. Abdomen: Obese, soft, nontender, nondistended, positive bowel sounds. No tympany to percussion. Musculoskeletal: Atraumatic, no peripheral edema. No CVA tenderness. Neurologic: Patient awake alert and oriented x 3 Skin: Warm, dry, no rash Medical Decision & Procedures ER Provider Diagnostic Interpretation: Radiology results as stated below per my review and radiologist interpretation. ABDOMEN AND PELVIS CT WITHOUT CONTRAST FINDINGS: Minimal subsegmental bibasilar atelectasis/scarring. Costophrenic granuloma to about the left lung base. Prominent perifissural lymph nodes at the level of the right lung base measure up to 4 mm. There is no pneumatosis or pneumoperitoneum identified. Imaged inferior cardiac chambers are mildly enlarged with coronary arterial calcifications noted. Circumscribed 12 mm low attenuating lesion of the left hepatic lobe adjacent to the zach hepatis is indeterminate however suggests hepatic cyst. No intrahepatic biliary ductal dilation. The spleen, gallbladder, pancreas and adrenal glands are within normal limits. Multiple renal sinus cysts are again noted bilaterally. Large cyst of the superior pole left kidney measures up to 6.9 cm. Mildly hyperattenuating 1.3 cm lesion of the medial aspect inferior pole left kidney is seen on image 265 series 3, previously measuring 10 mm on study dated 10/19/2015. There is mild to moderate right-sided hydroureteronephrosis with moderate perinephric and periureteral inflammatory stranding. There is a 3 mm calculus of the distal right ureter. Multiple layering bladder calculi are again noted with mild bladder wall thickening. Partial distention of the bladder with mild perivesicular stranding. Prostamegaly. Nonobstructing calculi are seen bilaterally measuring up to 3 mm. No left-sided hydronephrosis. Small bilateral fat filled inguinal hernias. Indeterminate 11 x 11 mm soft tissue nodule within the right para median tissues anterior to the urinary bladder, image 441 series 3, unchanged from comparison and possibly reflecting a lymph node. Moderate atherosclerosis of the aorta without aneurysm. No bulky adenopathy. There is no bowel obstruction or focal bowel wall thickening. Colonic diverticulosis without diverticulitis. Moderate stool volume suggests probable constipation. The appendix appears normal. Soft tissues are unremarkable. The bones appear intact. Severe multilevel facet arthrosis. Mild bone demineralization. Multilevel intervertebral disc space narrowing with spondylosis. IMPRESSION: 1. Mild to moderate right-sided hydroureteronephrosis with a 3 mm calculus of the distal right ureter, 11 mm proximal to the ureterovesicular junction. Multiple bladder calculi as well as nonobstructing bilateral nephrolithiasis redemonstrated. 2. Prostamegaly with bladder wall thickening and perivesicular inflammatory stranding suggesting sequela of chronic bladder outlet obstruction. Correlate with urinalysis to exclude cystitis. Unchanged soft tissue nodule anterior to the urinary bladder suggesting a lymph node. 3. Bilateral renal cysts and renal sinus cysts with interval enlargement of a mildly hyperattenuating 1.3 hyperattenuating lesion of the medial aspect inferior pole left kidney, previously measuring 10 mm, possibly reflecting a proteinaceous or hemorrhagic cyst. 4. Extensive colonic diverticulosis without diverticulitis. 5. Additional findings as above. Electronically signed by: Nathan Mcmahon M.D. 07/18/2017 12:06 PM Laboratory Results 07/18/17 11:21 Red Blood Count 4.80, Mean Corpuscular Volume 85.0, Mean Corpuscular Hemoglobin 29.8, Mean Corpuscular Hemoglobin Concent 35.0, Mean Platelet Volume 9.7, Neutrophils (%) (Auto) 78.3, Lymphocytes (%) (Auto) 9.8, Monocytes (%) (Auto) 10.3, Eosinophils (%) (Auto) 1.2, Basophils (%) (Auto) 0.2, Neutrophils # (Auto ) 4.64, Lymphocytes # (Auto) 0.58, Monocytes # (Auto) 0.61, Eosinophils # (Auto ) 0.07, Basophils # (Auto) 0.01 07/18/17 11:21 Test 07/18/17 11:15 07/18/17 11:21 Urine Color YELLOW Urine Appearance CLOUDY (CLEAR) Urine pH 5.0 (4.5-7.5) Urine Specific [place] 1.018 (1.000-1.030) Urine Protein NEG (NEG) Urine Glucose (UA) 2+ (NEG) Urine Ketones NEG (NEG) Urine Occult Blood TRACE (NEG) Urine Nitrite NEG (NEG) Urine Bilirubin NEG (NEG) Urine Urobilinogen NEG (NEG) Urine Leukocyte Esterase NEG (NEG) Urine WBC (Auto) 1-5 /hpf (0-5) Urine RBC (Auto) 0-4 /hpf (0-4) Urine Hyaline Casts (Auto) 1-5 /lpf (0-5) Urine Epithelial Cells (Auto) >30 /lpf (0-5) Urine Bacteria (Auto) NEG (NEG) Urine Renal Epithelial Cells 5-10 /lpf (0-5) Urine Crystals AMORPHOUS SEDIMENT (NONE White Blood Count 5.92 K/uL (4.8-10.8) Red Blood Count 4.80 M/uL (4.7-6.1) Hemoglobin 14.3 g/dL (14.0-18.0) Hematocrit 40.8 % (42-52) Mean Corpuscular Volume 85.0 fL (80-100) Mean Corpuscular Hemoglobin 29.8 pg (25-34) Mean Corpuscular Hemoglobin Concent 35.0 g/dl (32-36) Platelet Count 123 K/uL (130-400) Mean Platelet Volume 9.7 fL (7.4-10.4) Neutrophils (%) (Auto) 78.3 % Lymphocytes (%) (Auto) 9.8 % Monocytes (%) (Auto) 10.3 % Eosinophils (%) (Auto) 1.2 % Basophils (%) (Auto) 0.2 % Neutrophils # (Auto) 4.64 K/uL (1.4-6.5) Lymphocytes # (Auto) 0.58 K/uL (1.2-3.4) Monocytes # (Auto) 0.61 K/uL (0.11-0.59) Eosinophils # (Auto) 0.07 K/uL (0-0.5) Basophils # (Auto) 0.01 K/uL (0-0.2) RDW Standard Deviation 42.4 fL (36.4-46.3) RDW Coefficient of Variation 13.7 % (11.5-14.5) Immature Granulocyte % (Auto) 0.2 % Immature Granulocyte # (Auto) 0.01 K/uL (0.00-0.02) Anion Gap 6.0 mmol/L (3-11) Est Creatinine Clear Calc Drug Dose 55.8 ml/min Estimated GFR () 57.9 Estimated GFR (Non- 49.9 BUN/Creatinine Ratio 14.3 (10-20) Calcium Level 8.6 mg/dl (8.5-10.1) Total Bilirubin 0.9 mg/dl (0.2-1) Direct Bilirubin 0.3 mg/dl (0-0.2) Aspartate Amino Transf (AST/SGOT) 12 U/L (15-37) Alanine Aminotransferase (ALT/SGPT) 16 U/L (12-78) Alkaline Phosphatase 118 U/L (45-117) Total Protein 7.6 gm/dl (6.4-8.2) Albumin 3.2 gm/dl (3.4-5.0) Laboratory results per my review. Medications Administered Medications (Trade) Dose Ordered Sig/Faisal Route Start Time Stop Time Status Last Admin Dose Admin Sodium Chloride 500 ml @ 999 mls/hr Q31M STAT IV 07/18/17 11:11 07/18/17 11:41 DC 07/18/17 11:30 999 MLS/HR Sodium Chloride 1,000 ml @ 125 mls/hr Q8H STAT IV 07/18/17 11:11 07/18/17 14:19 DC 07/18/17 12:17 125 MLS/HR Fentanyl Citrate (Fentanyl Inj) 50 mcg NOW STAT IV 07/18/17 11:11 07/18/17 11:14 DC 07/18/17 11:29 50 MCG Ondansetron HCl (Zofran Inj) 4 mg NOW STAT IV 07/18/17 11:11 07/18/17 11:14 DC 07/18/17 11:29 4 MG ED Course 1104: Past medical records reviewed. The patient was evaluated in room B5. A complete history and physical examination was performed. 1111: Ordered Zofran Inj 4 mg IV, Fentanyl Inj 50 mcg IV, Sodium Chloride 1000 ml @ 125 mls/hr IV, Sodium Chloride 500 ml @ 999 mls/hr IV. 1355: Upon reevaluation, the patient appeared to have improvement of his symptoms. I discussed findings with him. He verbalized agreement of the treatment plan. The patient was discharged home. Medical Decision Differential diagnosis: Etiologies such as renal colic, appendicitis, diverticulitis, mesenteric ischemia, aortic pathology, infections, inflammatory bowel disease, PUD, biliary pathology, UTI, as well as others were entertained. This patient was evaluated and appeared to be in no significant distress. IV access was obtained and laboratory work was drawn. Patient was placed on the cardiac tech and found to be in normal sinus rhythm. He was hydrated with normal saline solution. Patient was medicated with IV fentanyl and Zofran. CT scan of the abdomen and pelvis is read for a 3 mm right ureteral calculus. Patient is also found to have bilateral nonobstructing renal calculi and bladder calculi. He also has a chronic bladder outlet obstruction from an enlarged prostate. He was strongly encouraged to follow-up with urology and referred to Dr. Jose at [facility] urology. He was given a prescription for p.o. [place] to be used as needed for severe pain. He will follow-up with his PCP for reevaluation as needed. Patient will return to the ER for worsening of symptoms or any medical concerns [place] Drug Monitoring Program Search Results: patient reviewed within database, no issues identified Medication Reconcilliation Current Medication List: was personally reviewed by me Blood Pressure Screening Patient's blood pressure: Elevated blood pressure Blood pressure disposition: Elevated BP felt to be situational Impression Primary Impression: Right flank pain Additional Impression: Renal colic Scribe Attestation The scribe's documentation has been prepared under my direction and personally reviewed by me in its entirety. I confirm that the note above accurately reflects all work, treatment, procedures, and medical decision making performed by me. Departure Information Dispostion Home / Self-Care Prescriptions Oxycodone Immediate Rel Tab (ROXICODONE IR) 5 Mg Tab 5 MG PO Q6H Y for Severe Pain, #20 TAB Prov: Amina Rich M.D. 07/18/17 Referrals Javier Mathur III, M.D. (PCP) Forms HOME CARE DOCUMENTATION FORM, IMPORTANT VISIT INFORMATION Patient Instructions My [facility] Additional Instructions Diagnosis: Right flank pain, renal colic Please follow-up with Dr. Jose of urology at [facility] physician group. Please explain that you are in the emergency department today. And that you have kidney stones. Please drink plenty of clear fluids. Oxy 1 tablet every 6 hours as needed for severe pain. Do not drive or take with this medication. Tylenol 650 mg every 6 hours as needed for less severe pain. Follow-up with your primary care physician this week for reevaluation. Return to the ER for worsening of symptoms or any medical concerns. Problem Qualifiers
== END 2017-07-18 13:59 | disposition home or self-care (01) ==
LOC: C.EDB 10:13
DX: N23 Unspecified renal colic (principal); E11.9 Type 2 diabetes mellitus without complications; I10 Essential (primary) hypertension; M17.11 Unilateral primary osteoarthritis, right knee; N40.0 Benign prostatic hyperplasia without lower urinary tract symptoms; N32.0 Bladder-neck obstruction; N21.0 Calculus in bladder; N20.2 Calculus of kidney with calculus of ureter; Z88.0 Allergy status to penicillin; Z88.1 Allergy status to other antibiotic agents; Z88.2 Allergy status to sulfonamides; Z88.5 Allergy status to narcotic agent; Z79.82 Long term (current) use of aspirin; Z79.899 Other long term (current) drug therapy

== ENCOUNTER → 2017-10-14 | Outpatient (CLI) | payer OTHER, BC ==
[~2017-10-14] MED LIST changes: +ACET-1256 PO; -ACET-24 PO; -AMLH/550 PO; +CHOL100010 PO; +CIPR250T3 PO; +FINA5TAB4 PO; +FLM4 PO; +OPTIRAY 320 IV PRN; +OXYC7.5T65 PO; -RXC5 PO; -SNK PO; -VITAMIN D PO
--- NOTE | 2017-10-14 13:49 | DIAGNOSTIC IMAGING REPORT ---
ABDOMEN AND PELVIS CT WITH IV CONTRAST CT DOSE: HISTORY: N13.9 Urinary outflow obstruction [id number] TECHNIQUE: Multiaxial CT images of the abdomen and pelvis were performed following the use of intravenous contrast. Delayed images were obtained to evaluate the urinary system. A dose lowering technique was utilized adhering to the principles of ALARA. COMPARISON STUDY: Abdomen and pelvis CT 07/18/2017. FINDINGS: Punctate calcified granuloma within the left lower lobe. The right lung base is clear. No pneumoperitoneum. No pneumatosis. No suspicious lytic or blastic osseous lesions. Small fat-containing bilateral inguinal hernias. The liver, gallbladder, adrenal glands, and pancreas are unremarkable. No retroperitoneal lymphadenopathy. Multiple bilateral peripelvic renal cysts are again noted. Multiple stable bilateral renal hypodense lesions which likely represent cysts. The largest in the upper pole of the left kidney measures 6.9 cm. There is a stable slightly hyperdense exophytic lesion within the lower pole the left kidney measuring 1.5 cm. This does not demonstrate enhancement and likely represent a hyperdense cyst. Mild bilateral perinephric edema is likely chronic. No hydronephrosis. Distortion of the bilateral renal collecting systems due to the multiple peripelvic cysts. However, no suspicious filling defects seen within the opacified bilateral renal collecting systems or ureters. Of note, the mid to distal right ureter is only partially opacified. The proximal to mid left ureter is nonopacified. The ureters are normal in course and caliber. Moderate bladder wall thickening with adjacent fat stranding. The prostate gland is severely enlarged measuring 8.4 x 7.5 cm. There is a 1.3 cm nodule adjacent to the right anterior bladder. This previous measured 1.1 cm. The spleen remains mildly enlarged measuring 13 cm in length. No renal or ureteral calculi identified. There are few punctate stones within the bladder. These have decreased in size and number compared to the prior study. Colonic diverticulosis. No bowel wall thickening or obstruction. Normal appendix. There are single mildly enlarged bilateral iliac lymph nodes. Dominant lymph node on the left on image 367 measures 2.8 x 1.3 cm. This previously measured 2.5 x 1.1 cm. No inguinal lymphadenopathy. Punctate calcification within the wall the left side the bladder may represent a stone located within the small diverticulum. Small linear filling defect seen within the posterior bladder. This could be related to the bladder trabeculation, enlarged prostate gland, or small amount of debris. This has a nonmasslike appearance. This is best seen on image 389. IMPRESSION: 1. Moderate bladder wall thickening with perivesicular inflammatory stranding. This has progressed in the interval. Although potentially related to chronic outlet obstruction from the severe prostatomegaly. The interval change raises the possibility of a superimposed cystitis. Recommend correlation with urinalysis. 2. Slight increase in size in the soft tissue nodule anterior to the bladder. This could represent a lymph node. 3. Multiple small bladder calculi which have decreased in size and number in the interval. 4. Multiple bilateral peripelvic and cortical renal cysts are again noted. No hydronephrosis. No definite renal calculi identified on this study. 5. The spleen remains mildly enlarged. 6. No suspicious filling defects seen within the opacified bilateral renal systems or ureters. 7. Small linear filling defect seen within the posterior bladder. This could be related to the bladder trabeculation, enlarged prostate gland, or small amount of debris. This has a nonmasslike appearance. 8. Additional findings as described above. Electronically signed by: Solomon Reich M.D. 10/14/2017 1:47 PM Dictated Date/Time: 10/14/2017 1:15 PM
[2017-10-14 14:48] LABS: BLOOD UREA NITROGEN 14 mg/dl (7-18)
== END | disposition home or self-care (01) ==
LOC: C.CTS 12:55
PROVIDERS: ATTEND Urology
DX: N13.9 Obstructive and reflux uropathy, unspecified (principal); N32.9 Bladder disorder, unspecified; M79.9 Soft tissue disorder, unspecified; N21.0 Calculus in bladder; N28.1 Cyst of kidney, acquired

== ENCOUNTER → 2017-10-16 | Outpatient (CLI) | payer OTHER, BC ==
[~2017-10-16] MED LIST changes: -OPTIRAY 320 IV PRN
[2017-10-16 18:01] LABS: BLOOD UREA NITROGEN 17 mg/dl (7-18)
== END | disposition home or self-care (01) ==
LOC: C.LAB 17:15
PROVIDERS: ATTEND Urology
DX: N20.0 Calculus of kidney (principal)

== ENCOUNTER 2020-08-01 15:38 | Inpatient (IN) ==
[2020-08-01 16:14] LABS: Basophils # (auto) 0.01 K/uL (0-0.2); Basophils % (auto) 0.1 %; Eosinophils # (auto) 0.04 K/uL (0-0.5); Eosinophils % (auto) 0.6 %; Hematocrit (blood only) 38.4 % (42-52); Hemoglobin 13.3 g/dL (14.0-18.0); Immature Granulocytes # (auto) 0.01 K/uL (0.00-0.02); Immature Granulocytes % (auto) 0.1 %; Lymphocytes # (auto) 0.51 K/uL (1.2-3.4); Lymphocytes % (auto) 7.3 %; Mean Corpuscular Hemoglobin 29.6 pg (25-34); Mean Corpuscular Hgb Conc 34.6 g/dL (32-36); Mean Corpuscular Volume 85.3 fL (80-100); Mean Platelet Volume 9.9 fL (7.4-10.4); Monocytes # (auto) 0.64 K/uL (0.11-0.59); Monocytes % (auto) 9.1 %; Neutrophils # (auto) 5.79 K/uL (1.4-6.5); Neutrophils % (auto) 82.8 %; Platelet Count 156 K/uL (130-400); RDW Coefficient of Variation 12.6 % (11.5-14.5); RDW Standard Deviation 39.4 fL (36.4-46.3)
--- NOTE | 2020-08-01 16:21 | Emergency Department Note ---
Impression & Plan Left sided abdominal pain, Hydronephrosis due to obstruction of ureter, UTI (urinary tract infection), Calculus of left ureter ED Provider Note INFORMANT: Patient ED PROVIDER(S): Javier Jose MD CHIEF COMPLAINT: Abdominal pain PLAN: Disposition: Admitted Condition: Good Outpatient prescription management: none Referral: None MEDICAL DECISION MAKING: Patient presented to the emergency department complaining of abdominal pain. IV was established. Blood work was obtained. Urinalysis obtained as well. The patient underwent CT imaging. His CBC and chemistry panel were unremarkable. His urinalysis was very concerning for infection. CT imaging revealed an obstructing left ureteral stone. Patient was given IV Rocephin, morphine, and Zofran. I consulted with Dr. Raymundo of urology. He asked for the patient to be made n.p.o. and will consult on him tomorrow for definitive management. I did consult with the [facility]. The patient will be admitted by Dr. Friend. Patient and were educated. They were pleased with the treatment. Triage Nursing notes reviewed and agree them. Vital Signs: reviewed and remarkable for no significant abnormalities Differential diagnosis: UTI, obstruction, mesenteric ischemia, Appendicitis, testicular torsion, infections, diverticulitis, aortic pathology, inflammatory bowel disease, renal colic, PUD, pancreatitis, biliary pathology, hernia, volvulus, constipation, as well as other pathologies. Diagnostics interpreted by me: ECG: Twelve-lead ECG reveals sinus rhythm with PVCs. Anterior Q waves. Nonsp ecific ST abnormality. Rate [address] elevation. Cardiac Monitoring: Cardiac monitoring ordered by me: The patient was placed on continuous cardiac monitoring and observed. It revealed a normal sinus rhythm at 87 beats per minute without ectopy or evidence of dysrhythmia. Imaging studies: CT scan abdomen pelvis reveals a left-sided ureteral stone with hydronephrosis. I refer you to the EMR for further details. HPI: The patient is a 79 year old male who presents to the Emergency Room with complaints of left lower abdominal pain. This started 4 days ago and is worsening. The patient also notes the following associated symptoms, constipation for the last 7 days, mild nausea, poor appetite. The patient has found no relieving factors. Current pain is rated as 9/10. Patient had a cystoscopy done a week ago at [facility]. He has not moved his bowels since. Pt denies LOC, headache, fevers, chills, diaphoresis, visual changes, neck pain, chest pain, breathing difficulties, vomiting, back pain, melena, hematochezia, urinary symptoms, numbness, weakness, lymphadenopathy, rash, or other complaints. ROS: See above HPI for pertinent positives & negatives. A total of 10 systems reviewed and were otherwise negative. PAST MEDICAL HISTORY:See Below , hypertension PAST SURGICAL HISTORY:See Below, cystoscopy FAMILY HISTORY:See Below SOCIAL HISTORY:See Below, retired HOME MEDICATIONS:See Below ALLERGIES:See Below VITALS:See Below PHYSICAL EXAMINATION: GENERAL: Awake, alert, well-appearing, in no distress HENT: Normocephalic, atraumatic. Oropharynx unremarkable. EYES: Normal conjunctiva. Sclera non-icteric. NECK: Inspection normal. Non-tender. Supple. No nuchal rigidity. FROM. No masses. RESPIRATORY: Clear to auscultation. No wheezes. No rales. Normal respiratory effort. CARDIAC: Normal rate. Normal rhythm. No murmurs. No rubs. Extremities warm and well perfused. Pulses equal. No JVD. GI: Soft, mildly tympanitic and distended. Left lower quadrant tenderness to palpation. No rebound or guarding. No masses. RECTAL: Deferred. MUSCULOSKELETAL: Atraumatic. Chest examination reveals no tenderness. The back is symmetrical on inspection without obvious abnormality. There is no CVA tenderness to palpation. No joint edema. LOWER EXTREMITIES: Calves are equal size bilaterally and non-tender. No edema. No discoloration. NEURO: Normal sensorium. No sensory or motor deficits noted. SKIN: No rash or jaundice noted. Javier Jose MD Past Med/Surg History Medical History (Updated 08/01/20 @ 22:25 by Javier Jose MD) Chronic idiopathic thrombocytopenia CKD (chronic kidney disease) stage 3, GFR 30-59 ml/min Diabetes mellitus, type 2 Diverticular disease DIVERTICULITIS YEARS AGO, NO PROBLEMS WITH SINCE Enlarged prostate Patient POD 1 s/p Robotic Simple Prostatectomy Gross hematuria Hyperlipidemia Hypertension Obesity (BMI 30.0-34.9) Right knee DJD Surgical History History of prostate surgery History of total knee arthroplasty Hx of cystoscopy with laser lithotripsy-- done @ [facility] 09/22/17, no issues with anesthesia Family History (Updated 08/01/20 @ 19:18 by Glenda Leung PA-C) Other Diabetes Social History Smoking Status: Never smoker Second Hand Exposure: No; Hx Alcohol Use: No Hx Substance Use: No Preferred Language: Portuguese Communication Ability: Effective Visual Impairment: No Limitations Hearing Ability: Normal Academic Affairs Coordinator Required: No Beliefs That Will Affect Care: None marital status: Current Living Situation: Spouse Feels Safe at Home: Yes Assistive Devices: None Allergies Allergies Allergy/AdvReac Type Severity Reaction Status Date / Time codeine Allergy Unknown ITCHING Verified 08/01/20 18:24 ofloxacin Allergy Unknown UNKNOWN Verified 08/01/20 18:24 oxytetracycline Allergy Unknown Hives Verified 08/01/20 18:24 Penicillins Allergy Unknown Hives Verified 08/01/20 18:24 Sulfa (Sulfonamide Allergy Unknown Hives Verified 08/01/20 18:24 Antibiotics) tetracycline Allergy Unknown Hives Verified 08/01/20 18:24 Home Meds Home Medications Medication Instructions Recorded Confirmed acetaminophen 1,000 mg PO Q4H PRN 10/25/17 08/01/20 amlodipine [Norvasc] 10 mg PO QAM 10/25/17 08/01/20 atenolol 100 mg PO QAM 10/25/17 08/01/20 metformin 500 mg PO QPM 10/25/17 08/01/20 magnesium oxide 400 mg PO QPM 12/02/17 08/01/20 lisinopril 2.5 mg PO DAILY 08/01/20 08/01/20 Results & Data (ED) Vital Signs Vital Signs - 24 hr 08/01/20 15:48 08/01/20 16:00 08/01/20 16:45 Temperature 36.7 C Temperature Source Oral Pulse Rate 84 85 83 Respiratory Rate 18 17 14 Respiratory Effort / Characteristics Non-Labored Spontaneous Respiratory Depth Normal Blood Pressure 153/83 H 159/91 H Blood Pressure Mean 106 113 Pulse Oximetry 95 Oxygen Delivery Method Room Air Sepsis New/Unexplained Change in Mental Status No Sepsis Action Taken by Nursing No Action Required 08/01/20 17:00 08/01/20 17:30 08/01/20 18:00 Temperature Temperature Source Pulse Rate 82 82 83 Respiratory Rate 16 24 20 Respiratory Effort / Characteristics Respiratory Depth Blood Pressure Blood Pressure Mean Pulse Oximetry Oxygen Delivery Method Sepsis New/Unexplained Change in Mental Status Sepsis Action Taken by Nursing 08/01/20 18:30 Temperature Temperature Source Pulse Rate 80 Respiratory Rate 20 Respiratory Effort / Characteristics Respiratory Depth Blood Pressure Blood Pressure Mean Pulse Oximetry Oxygen Delivery Method Sepsis New/Unexplained Change in Mental Status Sepsis Action Taken by Nursing Laboratory Data Result diagrams: 08/01/20 16:02 08/01/20 16:02 Lab Results 08/01/20 08/01/20 08/01/20 Range/Units 16:02 16:02 16:30 WBC 7.00 (4.8-10.8) K/uL RBC 4.50 L (4.7-6.1) M/uL Hgb 13.3 L (14.0-18.0) g/dL Hct 38.4 L (42-52) % MCV 85.3 (80-100) fL MCH 29.6 (25-34) pg MCHC 34.6 (32-36) g/dL RDW Std Deviation 39.4 (36.4-46.3) fL RDW Coeff of Danielle 12.6 (11.5-14.5) % Plt Count 156 (130-400) K/uL MPV 9.9 (7.4-10.4) fL Immature Gran % (Auto) 0.1 % Neut % (Auto) 82.8 % Lymph % (Auto) 7.3 % [place] % (Auto) 9.1 % Eos % (Auto) 0.6 % Baso % (Auto) 0.1 % Neut # (Auto) 5.79 (1.4-6.5) K/uL Lymph # (Auto) 0.51 L (1.2-3.4) K/uL [place] # (Auto) 0.64 H (0.11-0.59) K/uL Eos # (Auto) 0.04 (0-0.5) K/uL Baso # (Auto) 0.01 (0-0.2) K/uL Immature Gran # (Auto) 0.01 (0.00-0.02) K/uL Sodium 140 (136-145) mmol/L Potassium 3.2 L (3.5-5.1) mmol/L Chloride 107 (98-107) mmol/L Carbon Dioxide 29 (21-32) mmol/L Anion Gap 4.0 (3-11) BUN 20 H (7-18) mg/dl Creatinine 1.38 (0.6-1.4) mg/dl Est Cr Clr Drug Dosing 49.8 ml/min Est GFR ( Amer) 55.2 ml/min Est GFR (Non-Af Amer) 47.6 ml/min BUN/Creatinine Ratio 14.7 (10-20) Glucose 162 H (70-99) mg/dl Calcium 9.0 (8.5-10.1) mg/dl Total Bilirubin 0.7 (0.2-1) mg/dl AST 12 L (15-37) U/L ALT 18 (12-78) U/L Alkaline Phosphatase 129 H (45-117) U/L Total Protein 7.1 (6.4-8.2) gm/dl Albumin 2.8 L (3.4-5.0) gm/dl Globulin 4.3 H (2.5-4.0) gm/dl Albumin/Globulin Ratio 0.7 L (0.9-2) Lipase 109 (73-393) U/L Urine Color Red Urine Appearance Cloudy A (Clear) Urine pH 5.5 (4.5-7.5) Ur Specific [place] 1.021 (1.000-1.030) Urine Protein 3+ H (Negative) Urine Glucose (UA) 2+ H (Negative) Urine Ketones Negative (Negative) Urine Blood 3+ H (Negative) Urine Nitrite Positive A (Negative) Urine Bilirubin 1+ H (Negative) Urine Urobilinogen Negative (Negative) Ur Leukocyte Esterase 1+ H (Negative) Urine WBC (Auto) 10-30 H (0-5) /hpf Urine RBC (Auto) >30 H (0-4) /hpf U Hyaline Cast (Auto) 0 (0-5) /lpf U Epithel Cells (Auto) 20-30 H (0-5) /lpf Urine Bacteria (Auto) Negative (Negative) COVID-19 Eval Order SARS-CoV-2 (PCR) (Negative) 08/01/20 08/01/20 Range/Units 18:20 18:20 WBC (4.8-10.8) K/uL RBC (4.7-6.1) M/uL Hgb (14.0-18.0) g/dL Hct (42-52) % MCV (80-100) fL MCH (25-34) pg MCHC (32-36) g/dL RDW Std Deviation (36.4-46.3) fL RDW Coeff of Danielle (11.5-14.5) % Plt Count (130-400) K/uL MPV (7.4-10.4) fL Immature Gran % (Auto) % Neut % (Auto) % Lymph % (Auto) % [place] % (Auto) % Eos % (Auto) % Baso % (Auto) % Neut # (Auto) (1.4-6.5) K/uL Lymph # (Auto) (1.2-3.4) K/uL [place] # (Auto) (0.11-0.59) K/uL Eos # (Auto) (0-0.5) K/uL Baso # (Auto) (0-0.2) K/uL Immature Gran # (Auto) (0.00-0.02) K/uL Sodium (136-145) mmol/L Potassium (3.5-5.1) mmol/L Chloride (98-107) mmol/L Carbon Dioxide (21-32) mmol/L Anion Gap (3-11) BUN (7-18) mg/dl Creatinine (0.6-1.4) mg/dl Est Cr Clr Drug Dosing ml/min Est GFR ( Amer) ml/min Est GFR (Non-Af Amer) ml/min BUN/Creatinine Ratio (10-20) Glucose (70-99) mg/dl Calcium (8.5-10.1) mg/dl Total Bilirubin (0.2-1) mg/dl AST (15-37) U/L ALT (12-78) U/L Alkaline Phosphatase (45-117) U/L Total Protein (6.4-8.2) gm/dl Albumin (3.4-5.0) gm/dl Globulin (2.5-4.0) gm/dl Albumin/Globulin Ratio (0.9-2) Lipase (73-393) U/L Urine Color Urine Appearance (Clear) Urine pH (4.5-7.5) Ur Specific [place] (1.000-1.030) Urine Protein (Negative) Urine Glucose (UA) (Negative) Urine Ketones (Negative) Urine Blood (Negative) Urine Nitrite (Negative) Urine Bilirubin (Negative) Urine Urobilinogen (Negative) Ur Leukocyte Esterase (Negative) Urine WBC (Auto) (0-5) /hpf Urine RBC (Auto) (0-4) /hpf U Hyaline Cast (Auto) (0-5) /lpf U Epithel Cells (Auto) (0-5) /lpf Urine Bacteria (Auto) (Negative) COVID-19 Eval Order Covid19 at [facility] SARS-CoV-2 (PCR) NEGATIVE (Negative) Administered Medications Lactated Ringer's (Lr) 1,000 mls @ 125 mls/hr IV .Q8H PAVITHRA Stop: 08/31/20 22:06 Last Admin: 08/01/20 22:18 Dose: 125 mls/hr Documented by: [id number] Discontinued Medications Hydromorphone HCl (Hydromorphone Inj 0.5 Mg/0.5 Ml Syr) 0.25 mg IV NOW STA Stop: 08/01/20 18:17 Last Admin: 08/01/20 18:30 Dose: 0.25 mg Documented by: [id number] Ceftriaxone Sodium (Rocephin) 1,000 mg in 50 mls @ 100 mls/hr IV NOW STA Stop: 08/01/20 18:21 Last Infusion: 08/01/20 19:03 Dose: 0 mls/hr Documented by: [id number] Admin: 08/01/20 18:29 Dose: 100 mls/hr Documented by: [id number] Morphine Sulfate (Morphine Sulfate 2 Mg/Ml Carp) 2 mg IV NOW STA Stop: 08/01/20 18:04 Last Admin: 08/01/20 20:29 Dose: Not Given Documented by: [id number] Ondansetron HCl (Ondansetron Inj 2 Mg/Ml 2 Ml Vial) 4 mg IV NOW STA Stop: 08/01/20 18:04 Last Admin: 08/01/20 18:29 Dose: 4 mg Documented by: [id number] Potassium Chloride (Potassium Chloride Crtab 20 Meq Tabcr) 40 meq PO NOW STA Stop: 08/01/20 19:21 Last Admin: 08/01/20 20:20 Dose: 40 meq Documented by: [id number] Imaging Data Radiologist's Impression: Abdomen/Pelvis CT 08/01/20 16:03 CT SCAN OF THE ABDOMEN AND PELVIS WITHOUT IV CONTRAST CLINICAL HISTORY: Left lower quadrant abdominal pain. Constipation. COMPARISON STUDY: Abdominal CT dated 11/28/2017. TECHNIQUE: CT scan of the abdomen and pelvis is performed from the lung bases to the proximal femora. Images are reviewed in the axial, sagittal, and coronal planes. IV contrast was not administered for this examination. A dose lowering technique was utilized adhering to the principles of ALARA. CT DOSE: 980.68 mGycm FINDINGS: Lung bases: The heart is mildly enlarged and without pericardial effusion. The coronary arteries are densely calcified. There is a 7 mm nodular density at the left lung base seen on image #94, and a 3 mm nodular density at the left lung base seen on image #99. There is also a calcified left lower lobe granuloma. The lung bases are otherwise clear noting bibasilar scarring/atelectasis. There is a small hiatal hernia. Liver: The unenhanced liver is normal in size, contour, and attenuation. There is no intrahepatic biliary ductal dilatation. Gallbladder: Unremarkable. Spleen: Normal in size and attenuation. Pancreas: The unenhanced pancreas is moderately atrophic and grossly unremarkable. Adrenal glands: Unremarkable. Kidneys: The unenhanced kidneys are atrophic. There is a 7 mm obstructing calcu matheus in the mid left ureter at the level of L5, best seen on image #300. This causes mild left hydroureteronephrosis. There is associated left-sided perinephric stranding and trace fluid. Bilateral renal cysts measure up to 6.6 cm. A 2.6 cm complex/hyperdense cyst arises from the left lower pole. Numerous parapelvic cysts are seen bilaterally. No additional calculi are identified in either kidney. There is no right-sided hydronephrosis. Abdominal vasculature: The abdominal aorta is normal in course and caliber noting advanced atherosclerotic calcification. Bowel: There is moderate to advanced colonic diverticulosis without CT evidence of acute diverticulitis. No bowel obstruction is seen. The appendix is well- visualized and normal. Peritoneum: There is no intraperitoneal free air or abdominal ascites. Lymphadenopathy: None. Pelvic viscera: The prostate gland is markedly enlarged and heterogeneous, measuring 8.0 cm in transverse diameter. The bladder wall appears thickened and trabeculated indicating chronic outlet obstruction. Foci of intraluminal gas are noted. Layering hyperdense material within the gallbladder lumen likely represents blood products. Skeletal structures: The skeletal structures are osteopenic. There is moderate to advanced lumbosacral spondylosis. No lytic or blastic lesions are seen. IMPRESSION: 1. There is a 7 mm obstructing calculus in the mid left ureter. This causes mild left hydroureteronephrosis. 2. No additional calculi are identified in either kidney. 3. Marked prostatomegaly with evidence of chronic bladder outlet obstruction. 4. Gas within the bladder lumen is nonspecific and may be related to recent instrumentation. Additionally, there is hyperdense material within the bladder lumen that likely represents blood products. Correlate with clinical findings and urinalysis. 5. There are least 2 pulmonary nodules at the left lung base measuring up to 7 mm. These are new from previous and may be inflammatory. Precautionary 3 month follow-up chest CT is recommended to document resolution. 6. Cardiomegaly with advanced coronary artery calcification. 7. Moderate to advanced colonic diverticulosis without CT evidence of acute diverticulitis. 8. Additional findings as above. ACT 112: Positive. There are findings on this exam that require communication between the performing entity and the patient following Patient Test Result Information Act ([place] Act 112) guidelines. Electronically signed by: Shemar Spencer M.D. 08/01/2020 5:00 PM Discharge Plan Visit Data Chief Complaint: Abdominal Pain ED Provider: Javier Jose Discharge Problem: Left sided abdominal pain, Hydronephrosis due to obstruction of ureter, UTI (urinary tract infection), Calculus of left ureter Patient Disposition: Admitted As Inpatient Discharge Instructions Interventions: ED Discharge Assessment Last Done: 08/01/20 21:41
[2020-08-01 16:33] LABS: Albumin Level 2.8 gm/dl (3.4-5.0); BUN Creatinine Ratio 14.7 (10-20); Creatinine Clr Calc Pharmacy 49.8 ml/min; Est GFR (African American) 55.2 ml/min; Est GFR (Non-African American) 47.6 ml/min; Potassium 3.2 mmol/L (3.5-5.1)
[2020-08-01 16:36] LABS: Albumin Globulin Ratio 0.7 (0.9-2); Bilirubin,Total 0.7 mg/dl (0.2-1); Globulin 4.3 gm/dl (2.5-4.0); Total Protein 7.1 gm/dl (6.4-8.2)
[2020-08-01 17:01] LABS: Appearance Urine Cloudy (Clear); Bacteria Urine Automated Negative (Negative); Blood Urine 3+ (Negative); Color Urine Red; Epithelial Cell Urine Auto 20-30 /lpf (0-5); Glucose Urine UA 2+ (Negative); Ketones Urine Negative (Negative); Leukocyte Esterase Urine 1+ (Negative); Nitrite Urine Positive (Negative); Protein Urine 3+ (Negative); RBC Urine Automated >30 /hpf (0-4); Specific Gravity Urine 1.021 (1.000-1.030); Urobilinogen Urine Negative (Negative); pH Urine 5.5 (4.5-7.5)
--- NOTE | 2020-08-01 17:01 | CT Scan Report ---
CT SCAN OF THE ABDOMEN AND PELVIS WITHOUT IV CONTRAST CLINICAL HISTORY: Left lower quadrant abdominal pain. Constipation. COMPARISON STUDY: Abdominal CT dated 11/28/2017. TECHNIQUE: CT scan of the abdomen and pelvis is performed from the lung bases to the proximal femora. Images are reviewed in the axial, sagittal, and coronal planes. IV contrast was not administered for this examination. A dose lowering technique was utilized adhering to the principles of ALARA. CT DOSE: 980.68 mGycm FINDINGS: Lung bases: The heart is mildly enlarged and without pericardial effusion. The coronary arteries are densely calcified. There is a 7 mm nodular density at the left lung base seen on image #94, and a 3 m m nodular density at the left lung base seen on image #99. There is also a calcified left lower lobe granuloma. The lung bases are otherwise clear noting bibasilar scarring/atelectasis. There is a small hiatal hernia. Liver: The unenhanced liver is normal in size, contour, and attenuation. There is no intrahepatic jessika iary ductal dilatation. Gallbladder: Unremarkable. Spleen: Normal in size and attenuation. Pancreas: The unenhanced pancreas is moderately atrophic and grossly unremarkable. Adrenal glands: Unremarkable. Kidneys: The unenhanced kidneys are atrophic. There is a 7 mm obstructing calculus in the mid left ur eter at the level of L5, best seen on image #300. This causes mild left hydroureteronephrosis. There is associated left-sided perinephric stranding and trace fluid. Bilateral renal cysts measure up to 6 .6 cm. A 2.6 cm complex/hyperdense cyst arises from the left lower pole. Numerous parapelvic cysts ar e seen bilaterally. No additional calculi are identified in either kidney. There is no right-sided hy dronephrosis. Abdominal vasculature: The abdominal aorta is normal in course and caliber noting advanced atheroscle rotic calcification. Bowel: There is moderate to advanced colonic diverticulosis without CT evidence of acute diverticulit is. No bowel obstruction is seen. The appendix is well-visualized and normal. Peritoneum: There is no intraperitoneal free air or abdominal ascites. Lymphadenopathy: None. Pelvic viscera: The prostate gland is markedly enlarged and heterogeneous, measuring 8.0 cm in transv erse diameter. The bladder wall appears thickened and trabeculated indicating chronic outlet obstruct ion. Foci of intraluminal gas are noted. Layering hyperdense material within the gallbladder lumen li falguni represents blood products. Skeletal structures: The skeletal structures are osteopenic. There is moderate to advanced lumbosacra l spondylosis. No lytic or blastic lesions are seen. IMPRESSION: 1. There is a 7 mm obstructing calculus in the mid left ureter. This causes mild left hydroureteronep hrosis. 2. No additional calculi are identified in either kidney. 3. Marked prostatomegaly with evidence of chronic bladder outlet obstruction. 4. Gas within the bladder lumen is nonspecific and may be related to recent instrumentation. Addition ally, there is hyperdense material within the bladder lumen that likely represents blood products. Co rrelate with clinical findings and urinalysis. 5. There are least 2 pulmonary nodules at the left lung base measuring up to 7 mm. These are new from previous and may be inflammatory. Precautionary 3 month follow-up chest CT is recommended to documen t resolution. 6. Cardiomegaly with advanced coronary artery calcification. 7. Moderate to advanced colonic diverticulosis without CT evidence of acute diverticulitis. 8. Additional findings as above. ACT 112: Positive. There are findings on this exam that require communication between the performing entity and the patient following Patient Test Result Information Act ([place] Act 112) guidelines. Electronically signed by: Shemar Spenecr M.D. 08/01/2020 5:00 PM
[2020-08-01 17:07] LABS: Bilirubin Urine 1+ (Negative)
[2020-08-01 17:26] LABS: Cast Urine Automated 0 /lpf (0-5)
[2020-08-01] MEDS ORDERED: cefTRIAXone SODIUM 1,000 MG/50 ML BAG IV STA (17:52)
[2020-08-01] MEDS ORDERED: ONDANSETRON INJ 2 MG/ML 2 ML VIAL IV STA (18:03)
[2020-08-01] MEDS ORDERED: MoRPHine SULFATE 2 MG/ML CARP IV STA (18:03)
[2020-08-01] MEDS ORDERED: HYDROmorphone INJ 0.5 MG/0.5 ML SYR IV STA (18:16)
--- NOTE | 2020-08-01 18:41 | History & Physical Report ---
Date of Service August 01, 2020 Assessment & Plan (1) Left sided abdominal pain: (2) Hydronephrosis due to obstruction of ureter: (3) Calculus of left ureter: (4) UTI (urinary tract infection): This is a 79-year-old male who has significant past medical history of T2DM, HTN, HLD, IPMN, obstructive uropathy, chronic ITP who presents to ED secondary to abdominal pain x1 day. CT abdomen pelvis reveals 7 mm obstructing calculus in mid left ureter with mild left hydroureteronephrosis, marked prostamegaly with evidence of chronic bladder outlet obstruction, gas within bladder lumen likely related to recent instrumentation as well as blood products. Pt does not exhibit s/sx of SIRS/SEPSIS, but he does have a very mild JACQUI He is hemodynamically stable admit to med/tele continue IV Rocephin 2g daily ( given additional 1g when he gets to the floor - he received 1g in ED) IVF LR @ 125cc/hr Flomax 0.4mg @ HS consult urology - contacted by ED provider, NPO in event clinical course changes overnight urine strainer recent cysto with TURP done at [facility] on 07/22 - pt did not complete antibiotic post op, he took 1 day of levaquin 500mg records requested from [facility] (5) JACQUI (acute kidney injury): mild baseline cr per outpt records 0.8-1.0 bun/cr 20 and 1.38 today likely in setting of obstructing stone continue IVF urology consulted hold lisinopril and avoid nephrotoxic agents bmp in a.m. (6) Hypokalemia: give 40meq KCL x 1 now repeat bmp in a.m. (7) Diabetes mellitus, type 2: Last A1c 7.3 on 06/30 Hold metformin, Lantus/NovoLog Per protocol Consult glycemic pharmacy secondary to n.p.o. status Appreciate their assistance (8) Hypertension: BP elevated in ED, likely 2/2 to pain continue atenolol, amlodipine with parameters hold lisinopril until renal fxn re assessed in a.m. (9) Pulmonary nodule: There are least 2 pulmonary nodules at the left lung base measuring up to 7 mm. These are new from previous and may be inflammatory. Precautionary 3 month follow-up chest CT is recommended to document resolution. follow up with repeat CT as outpt (10) DVT prophylaxis: SCD/TEDS for now given possible procedure reassess daily need for chemical prophlyaxis PCP: Kevan Dispo: med tele FULL CODE Pt was seen and examined in collaboration with Dr. Friend, please see addendum History of Present Illness Chief Complaint: Abdominal pain x1 day. Primary Care Provider: Javier Mathur MD This is a 79-year-old male who has significant past medical history of T2DM, HTN, HLD, IPMN, obstructive uropathy, chronic ITP who presents to ED secondary to abdominal pain x1 day. This morning patient developed a gradual onset left middle side of abdomen pain. The pain became constant, "I could not get comfortable." The pain did not radiate, he tried Tylenol but that did not improve his symptoms. He has felt similar symptoms in the past whenever he was diagnosed with a previous kidney stone. Currently the pain has been improved with IV Dilaudid. Nothing makes pain worse. Of significance patient follows urology in [facility] and he underwent a cystoscopy and TURP on 07/22. He was hospitalized and discharged next day on 519. He did have postop hematuria requiring chronic bladder irrigation. He was discharged home with Jackson catheter which has since been removed. He was also discharged on Levaquin once daily for 7 days. He states he took this 1 day and it made his feet feel, "funny," therefore he stopped it. He denies any fever, chills, sweats, lighth eadedness, dizziness, chest pain, shortness of breath, URI symptoms, nausea, vomiting, dysuria, increased urgency or frequency with urination, melena or hematochezia. He does complain of small amount of hematuria. He thought his abdominal pain was secondary to constipation because he has not moved his bowels in 4 days. He has not tried any [id number] stool softeners. Appetite has been poor today secondary to pain. Allergies Allergy/AdvReac Type Severity Reaction Status Date / Time codeine Allergy Unknown ITCHING Verified 08/01/20 18:24 ofloxacin Allergy Unknown UNKNOWN Verified 08/01/20 18:24 oxytetracycline Allergy Unknown Hives Verified 08/01/20 18:24 Penicillins Allergy Unknown Hives Verified 08/01/20 18:24 Sulfa (Sulfonamide Allergy Unknown Hives Verified 08/01/20 18:24 Antibiotics) tetracycline Allergy Unknown Hives Verified 08/01/20 18:24 Home Medications Medication Instructions Recorded Confirmed Type acetaminophen 1,000 mg PO Q4H PRN 10/25/17 08/01/20 History amlodipine [Norvasc] 10 mg PO QAM 10/25/17 08/01/20 History atenolol 100 mg PO QAM 10/25/17 08/01/20 History metformin 500 mg PO QPM 10/25/17 08/01/20 History magnesium oxide 400 mg PO QPM 12/02/17 08/01/20 History lisinopril 2.5 mg PO DAILY 08/01/20 08/01/20 History Past Med/Surg History Medical History (Updated 08/01/20 @ 22:25 by Javier Jose MD) Chronic idiopathic thrombocytopenia CKD (chronic kidney disease) stage 3, GFR 30-59 ml/min Diabetes mellitus, type 2 Diverticular disease DIVERTICULITIS YEARS AGO, NO PROBLEMS WITH SINCE Enlarged prostate Patient POD 1 s/p Robotic Simple Prostatectomy Gross hematuria Hyperlipidemia Hypertension Obesity (BMI 30.0-34.9) Right knee DJD Surgical History History of prostate surgery History of total knee arthroplasty Hx of cystoscopy with laser lithotripsy-- done @ [facility] 09/22/17, no issues with anesthesia Family History (Updated 08/01/20 @ 19:18 by Glenda Leung PA-C) Other Diabetes Social History Smoking Status: Never smoker Second Hand Exposure: No; Hx Alcohol Use: No Hx Substance Use: No Preferred Language: Bahraini Communication Ability: Effective Visual Impairment: No Limitations Hearing Ability: Normal Asp Net Programmer Required: No Beliefs That Will Affect Care: None marital status: Current Living Situation: Spouse Current Living Situation Comment: Home with Other Information That Helps Us Care for You: No Feels Safe at Home: Yes Safety Concerns: Feels Safe At This Time Assistive Devices: None Review of Systems Review of Systems: All systems reviewed & are unremarkable except as noted in HPI & below Physical Exam Physical Exam: Constitutional: WD/WN, vitals as above, NAD, sitting up in bed, pleasant, conversing easily Head: Normocephalic, Atraumatic Eyes: PERRL, conjunctivae normal, anicteric sclerae ENMT: external ear and nose normal, oropharynx normal Neck: trachea midline, no thyromegaly normal visual inspection Respiratory: normal respiratory effort, lungs clear to auscultation, no wheeze, rales, rhonchi. Normal insp/exp effort, no accessory muscle use Cardiovascular: RRR, no murmur, no edema Vessels: no JVD or carotid bruit Chest: normal inspection of chest Abdomen: Protuberant abdomen, normal bowel sounds, soft, nontender, no hepatosplenomegaly Musculoskeletal: no cyanosis or clubbing, extremities motor strength 5/5 Skin: no rashes, warm and dry normal turgor Neurologic: PERRL, EOMI, accommodation nl, no face palsy, no dysarthria CN's II-XI intact bilaterally and moves all extremities Psychiatric: A+Ox3, euthymic affect Lymphatic: no cervical or axillary lymphadenopathy : deferred Results & Data Results & Data ([facility]) Vital Signs (Past 12 Hours) Vital Signs Temp Pulse Resp BP Pulse Ox 08/01/20 17:30 82 24 08/01/20 17:00 82 16 08/01/20 16:45 83 14 08/01/20 16:00 85 17 159/91 H 08/01/20 15:48 36.7 C 84 18 153/83 H 95 Diagnostic Findings Abdomen/Pelvis CT 08/01/20 16:03 CT SCAN OF THE ABDOMEN AND PELVIS WITHOUT IV CONTRAST CLINICAL HISTORY: Left lower quadrant abdominal pain. Constipation. COMPARISON STUDY: Abdominal CT dated 11/28/2017. TECHNIQUE: CT scan of the abdomen and pelvis is performed from the lung bases to the proximal femora. Images are reviewed in the axial, sagittal, and coronal planes. IV contrast was not administered for this examination. A dose lowering technique was utilized adhering to the principles of ALARA. CT DOSE: 980.68 mGycm FINDINGS: Lung bases: The heart is mildly enlarged and without pericardial effusion. The c oronary arteries are densely calcified. There is a 7 mm nodular density at the left lung base seen on image #94, and a 3 mm nodular density at the left lung base seen on image #99. There is also a calcified left lower lobe granuloma. The lung bases are otherwise clear noting bibasilar scarring/atelectasis. There is a small hiatal hernia. Liver: The unenhanced liver is normal in size, contour, and attenuation. There is no intrahepatic biliary ductal dilatation. Gallbladder: Unremarkable. Spleen: Normal in size and attenuation. Pancreas: The unenhanced pancreas is moderately atrophic and grossly unremarkable. Adrenal glands: Unremarkable. Kidneys: The unenhanced kidneys are atrophic. There is a 7 mm obstructing calculus in the mid left ureter at the level of L5, best seen on image #300. This causes mild left hydroureteronephrosis. There is associated left-sided perinephric stranding and trace fluid. Bilateral renal cysts measure up to 6.6 cm. A 2.6 cm complex/hyperdense cyst arises from the left lower pole. Numerous parapelvic cysts are seen bilaterally. No additional calculi are identified in either kidney. There is no right-sided hydronephrosis. Abdominal vasculature: The abdominal aorta is normal in course and caliber noting advanced atherosclerotic calcification. Bowel: There is moderate to advanced colonic diverticulosis without CT evidence of acute diverticulitis. No bowel obstruction is seen. The appendix is well- visualized and normal. Peritoneum: There is no intraperitoneal free air or abdominal ascites. Lymphadenopathy: None. Pelvic viscera: The prostate gland is markedly enlarged and heterogeneous, measuring 8.0 cm in transverse diameter. The bladder wall appears thickened and trabeculated indicating chronic outlet obstruction. Foci of intraluminal gas are noted. Layering hyperdense material within the gallbladder lumen likely represents blood products. Skeletal structures: The skeletal structures are osteopenic. There is moderate to advanced lumbosacral spondylosis. No lytic or blastic lesions are seen. IMPRESSION: 1. There is a 7 mm obstructing calculus in the mid left ureter. This causes mild left hydroureteronephrosis. 2. No additional calculi are identified in either kidney. 3. Marked prostatomegaly with evidence of chronic bladder outlet obstruction. 4. Gas within the bladder lumen is nonspecific and may be related to recent instrumentation. Additionally, there is hyperdense material within the bladder lumen that likely represents blood products. Correlate with clinical findings and urinalysis. 5. There are least 2 pulmonary nodules at the left lung base measuring up to 7 mm. These are new from previous and may be inflammatory. Precautionary 3 month follow-up chest CT is recommended to document resolution. 6. Cardiomegaly with advanced coronary artery calcification. 7. Moderate to advanced colonic diverticulosis without CT evidence of acute diverticulitis. 8. Additional findings as above. ACT 112: Positive. There are findings on this exam that require communication between the performing entity and the patient following Patient Test Result Information Act ([place] Act 112) guidelines. Electronically signed by: Shemar Spencer M.D. 08/01/2020 5:00 PM Medications Administered Medication List Discontinued Medications Hydromorphone HCl (Hydromorphone Inj 0.5 Mg/0.5 Ml Syr) 0.25 mg IV NOW STA Stop: 08/01/20 18:17 Last Admin: 08/01/20 18:30 Dose: 0.25 mg Documented by: [id number] Ceftriaxone Sodium (Rocephin) 1,000 mg in 50 mls @ 100 mls/hr IV NOW STA Stop: 08/01/20 18:21 Last Admin: 08/01/20 18:29 Dose: 100 mls/hr Documented by: [id number] Ondansetron HCl (Ondansetron Inj 2 Mg/Ml 2 Ml Vial) 4 mg IV NOW STA Stop: 08/01/20 18:04 Last Admin: 08/01/20 18:29 Dose: 4 mg Documented by: [id number] ECG Rate (beats per minute): 86 Rhythm: normal sinus COVID-19 Results Results COVID-19 Adm Lab Results: RBC 4.09 M/uL (4.7-6.1) L 08/02/20 WBC 3.47 K/uL (4.8-10.8) L 08/02/20 Hgb 11.9 g/dL (14.0-18.0) L 08/02/20 Hct 35.5 % (42-52) L 08/02/20 Plt Count 145 K/uL (130-400) 08/02/20 Neutrophils (%) (Auto) 66.8 % 08/02/20 Lymphocytes (%) (Auto) 19.9 % 08/02/20 Monocytes # (Auto) 0.37 K/uL (0.11-0.59) 08/02/20 Eosinophils # (Auto) 0.07 K/uL (0-0.5) 08/02/20 Immature Granulocyte % (Auto) 0.3 % 08/02/20 Neutrophils # (Auto) 2.32 K/uL (1.4-6.5) 08/02/20 Lymphocytes # (Auto) 0.69 K/uL (1.2-3.4) L 08/02/20 Monocytes # (Auto) 0.37 K/uL (0.11-0.59) 08/02/20 Eosinophils # (Auto) 0.07 K/uL (0-0.5) 08/02/20 Basophils # (Auto) 0.01 K/uL (0-0.2) 08/02/20 Immature Granulocyte # (Auto) 0.01 K/uL (0.00-0.02) 08/02/20 Na 141 mmol/L (136-145) 08/02/20 K 3.4 mmol/L (3.5-5.1) L 08/02/20 Cl 109 mmol/L (98-107) H 08/02/20 CO2 28 mmol/L (21-32) 08/02/20 Anion Gap 5.0 (3-11) 08/02/20 BUN 16 mg/dl (7-18) 08/02/20 Creatinine 0.89 mg/dl (0.6-1.4) 08/02/20 BUN/Creatinine Ratio 18.1 (10-20) 08/02/20 Glucose Level 138 mg/dl (70-99) H 08/02/20 Ca 8.5 mg/dl (8.5-10.1) 08/02/20 Total Bilirubin 0.7 mg/dl (0.2-1) 08/01/20 AST/SGOT 12 U/L (15-37) L 08/01/20 ALT/SGPT 18 U/L (12-78) 08/01/20 Alkaline Phosphatase 129 U/L (45-117) H 08/01/20 Total Protein 7.1 gm/dl (6.4-8.2) 08/01/20 Albumin 2.8 gm/dl (3.4-5.0) L 08/01/20 Globulin 4.3 gm/dl (2.5-4.0) H 08/01/20 Albumin/Globulin Ratio 0.7 (0.9-2) L 08/01/20 COVID-19 PCR NEGATIVE (Negative) 08/01/20 Code Status & VTE Plan Code Status Full Code VTE Prophylaxis Plan VTE Prophylaxis will be ordered: Yes Supervising Physician Co-Signing Physician Notes Attending addendum: 79-year-old Admitted with left flank pain ureteric colic left-sided obstructing stone 7 mm with moderate hydroureteronephrosis. No evidence of sepsis, no fever or chills, normal white count/function stable Started on IV Rocephin for possible complicated UTI, UA grossly positive Ordered for IV fluids Urology consulted, Patient will be kept n.p.o. evaluated by urology, may need ureteric stent Ordered Hiram Friend MD
[2020-08-01] MEDS ORDERED: POTASSIUM CHLORIDE CRTAB 20 MEQ TABCR PO STA (19:20)
[2020-08-01] MEDS ORDERED: TAMSULOSIN HCL 0.4 MG CAP PO SCH (21:00)
[2020-08-01] MEDS ORDERED: GLUCOSE 40% GEL 15 GM TUBE PO PRN (22:07)
[2020-08-01] MEDS ORDERED: INSULIN GLARGINE SOLOSTAR 100 UNITS/ML 3 ML PEN SC SCH (22:07)
[2020-08-01] MEDS ORDERED: GLUCAGON FOR INJ 1 MG VIAL SQ PRN (22:07)
[2020-08-01] MEDS ORDERED: GLUCOSE 10 TABS/TUBE PO PRN (22:07)
[2020-08-01] MEDS ORDERED: ONDANSETRON INJ 2 MG/ML 2 ML VIAL IV PRN (22:07)
[2020-08-01] MEDS ORDERED: MAGNESIUM HYDROXIDE SUSP 30 ML UDC PO PRN (22:07)
[2020-08-01] MEDS ORDERED: HYDROmorphone INJ 0.5 MG/0.5 ML SYR IV PRN (22:07)
[2020-08-01] MEDS ORDERED: ALUMINUM/MAGNESIUM SUSP 30 ML UDC PO PRN (22:07)
[2020-08-01] MEDS ORDERED: POLYETHYLENE (MIRALAX) 17 GM PACK PO PRN (22:07)
[2020-08-01] MEDS ORDERED: CARBOHYDRATES FOR HYPOGLYCEMIA PO PRN (22:07)
[2020-08-01] MEDS ORDERED: DEXTROSE 50% 50 ML SYRINGE IV PRN (22:07)
[2020-08-01] MEDS ORDERED: ACETAMINOPHEN 325 MG TAB PO PRN (22:07)
[2020-08-01] MEDS: LACTATED RINGER'S 1,000 ML IV SCH (22:18)
[2020-08-01] MEDS ORDERED: PHARMACY GLYCEMIC MGMT CONSULT PRN (22:34)
[2020-08-01] MEDS ORDERED: cefTRIAXone SODIUM 1,000 MG in DEXTROSE 5% 50 ML IV ONE (22:45)
[2020-08-01] MEDS: INSULIN ASPART 100 UNITS/ML 3 ML PEN SC SCH (23:15)
[2020-08-01] MEDS: MAGNESIUM OXIDE 400 MG TAB PO SCH (23:33)
[2020-08-01] MEDS: DOCUSATE SODIUM/SENNA 50/8.6MG TAB PO SCH (23:34)
[2020-08-01] MEDS: TAMSULOSIN HCL 0.4 MG CAP PO SCH (23:34)
[2020-08-02] MEDS: LACTATED RINGER'S 1,000 ML IV SCH ×3 (06:06→20:58)
[2020-08-02 07:22] LABS: Basophils # (auto) 0.01 K/uL (0-0.2); Basophils % (auto) 0.3 %; Eosinophils # (auto) 0.07 K/uL (0-0.5); Hematocrit (blood only) 35.5 % (42-52); Hemoglobin 11.9 g/dL (14.0-18.0); Immature Granulocytes # (auto) 0.01 K/uL (0.00-0.02); Immature Granulocytes % (auto) 0.3 %; Lymphocytes # (auto) 0.69 K/uL (1.2-3.4); Lymphocytes % (auto) 19.9 %; Mean Corpuscular Hemoglobin 29.1 pg (25-34); Mean Corpuscular Hgb Conc 33.5 g/dL (32-36); Mean Corpuscular Volume 86.8 fL (80-100); Mean Platelet Volume 10.3 fL (7.4-10.4); Monocytes # (auto) 0.37 K/uL (0.11-0.59); Monocytes % (auto) 10.7 %; Neutrophils # (auto) 2.32 K/uL (1.4-6.5); Neutrophils % (auto) 66.8 %; Platelet Count 145 K/uL (130-400); RDW Coefficient of Variation 12.7 % (11.5-14.5); RDW Standard Deviation 40.6 fL (36.4-46.3); Red Blood Count 4.09 M/uL (4.7-6.1); White Blood Count 3.47 K/uL (4.8-10.8)
[2020-08-02 07:51] LABS: BUN Creatinine Ratio 18.1 (10-20); Calcium 8.5 mg/dl (8.5-10.1); Creatinine Clr Calc Pharmacy 75.4 ml/min; Est GFR (African American) 92.9 ml/min; Est GFR (Non-African American) 80.2 ml/min; Magnesium 2.2 mg/dl (1.8-2.4); Potassium 3.4 mmol/L (3.5-5.1)
[2020-08-02] MEDS: ATENOLOL 50 MG TABLET PO SCH (08:15)
[2020-08-02] MEDS: amLODIPine BESYLATE 5 MG TAB PO SCH (08:15)
[2020-08-02] MEDS: DOCUSATE SODIUM/SENNA 50/8.6MG TAB PO SCH (08:15)
[2020-08-02] MEDS: INSULIN ASPART 100 UNITS/ML 3 ML PEN SC SCH ×4 (08:15→21:35)
--- NOTE | 2020-08-02 08:58 | Pharmacy Report ---
Pharmacy Glycemic Short Note 2 - Date of Service August 02, 2020 - Glycemic Short BSG Results (Last 24 hours): 08/01/20 08/01/20 08/02/20 16:02 22:29 06:54 Glucose 162 H 138 H POC Glucose 138 H 08/02/20 07:43 Glucose POC Glucose 137 H OUTPATIENT ANTIDIABETIC REGIMEN: * Metformin 500 mg PO qPM * HbA1c: 7.3% (06/30/20) ASSESSMENT: * IZA is an 79 year old male who presented on 08/01 with abdominal pain * Patient has significant urologic history, including TURP on 07/22/20 * BSGs reasonably controlled overnight, 162 and 138 mg/dL * Significant improvement in SCr overnight (1.38 -> 0.89 mg/dL) * Fasting BSG of 137 mg/dL this morning * Patient ordered diet with lunch - will give 0.1 unit/kg dose of Lantus at lunch * NPO after midnight PLAN FOR INPATIENT GLYCEMIC CONTROL: * Hold outpatient oral diabetes medications * Basal insulin * Lantus 10 units SC x 1 today (0.1 unit/kg) * NPO after midnight - will reassess tomorrow * Bolus insulin * NovoLog per scale ACHS or Q6hrs while NPO * Goal Range: Low 110 mg/dL - High 140 mg/dL * Correction Factor: 30 mg/dL/unit * Nutritional / Prandial insulin per carb ratio of 1 unit per 10 grams CHO consumed PLAN FOR DISCHARGE: * HbA1c of 7.3% is reasonable for patient based on age and comorbidities * If tighter control is desired, consider increasing metformin to 500 mg PO BIDM (provided renal function remains at/near baseline)
--- NOTE | 2020-08-02 09:20 | Urology Consultation ---
Date of Consultation August 02, 2020 Assessment & Plan (1) Calculus of left ureter: 7mm left mid ureteral calculus. WBC normal. Cr improved and back to baseline. Pain controlled. Rec another 24 hours of medical expulsive therapy. Will book for OR on 08/03/20 for cysto, left Uscope, laser litho, and stent. (2) Left sided abdominal pain: Cont pain control while admitted. History of Present Illness Attending Physician: Kelly Friend MD 79 y/o male with a sig past med hx including DM, HT, Dyslipids, IPMN, ITP, and BPH. Presented to the ED yesterday with 24 hours of left sided flank pain. Left side. No radiation. He treated himself with Tylenol but it did not improve his pain. He does have a hx of kidney stones. [facility] Post op he did have a galvez which subsq has been removed. He denies any hematuria, dysuria, fevers, chills, nausea, vomitting. He reports some urge and freq. Upon admission, he had a CT scan performed which showed a 7mm mid ureteral stone in the left ureter at the level of L5. There were also b/l renal cysts. His Cr was slightly elevated at the time of admission at 1.38. Since hydration, it has returned to normal at 0.89. WBC is 7. Currently his is comfortable and not having the pain he was having at the time of admission. Allergies Allergy/AdvReac Type Severity Reaction Status Date / Time codeine Allergy Unknown ITCHING Verified 08/01/20 18:24 ofloxacin Allergy Unknown UNKNOWN Verified 08/01/20 18:24 oxytetracycline Allergy Unknown Hives Verified 08/01/20 18:24 Penicillins Allergy Unknown Hives Verified 08/01/20 18:24 Sulfa (Sulfonamide Allergy Unknown Hives Verified 08/01/20 18:24 Antibiotics) tetracycline Allergy Unknown Hives Verified 08/01/20 18:24 Home Medications Medication Instructions Recorded Confirmed Type acetaminophen 1,000 mg PO Q4H PRN 10/25/17 08/01/20 History amlodipine [Norvasc] 10 mg PO QAM 10/25/17 08/01/20 History atenolol 100 mg PO QAM 10/25/17 08/01/20 History metformin 500 mg PO QPM 10/25/17 08/01/20 History magnesium oxide 400 mg PO QPM 12/02/17 08/01/20 History lisinopril 2.5 mg PO DAILY 08/01/20 08/01/20 History Patient History Medical History (Updated 08/01/20 @ 22:25 by Javier Jose MD) Chronic idiopathic thrombocytopenia CKD (chronic kidney disease) stage 3, GFR 30-59 ml/min Diabetes mellitus, type 2 Diverticular disease DIVERTICULITIS YEARS AGO, NO PROBLEMS WITH SINCE Enlarged prostate Patient POD 1 s/p Robotic Simple Prostatectomy Gross hematuria Hyperlipidemia Hypertension Obesity (BMI 30.0-34.9) Right knee DJD Surgical History History of prostate surgery History of total knee arthroplasty Hx of cystoscopy with laser lithotripsy-- done @ [facility] 09/22/17, no issues with anesthesia Family History (Updated 08/01/20 @ 19:18 by Glenda Leung PA-C) Other Diabetes Social History Smoking Status: Never smoker Second Hand Exposure: No; Hx Alcohol Use: No Hx Substance Use: No Preferred Language: Grenadian Communication Ability: Effective Visual Impairment: No Limitations Hearing Ability: Normal Residential Property Manager Required: No Beliefs That Will Affect Care: None marital status: Current Living Situation: Spouse Current Living Situation Comment: Home with Other Information That Helps Us Care for You: No Feels Safe at Home: Yes Safety Concerns: Feels Safe At This Time Assistive Devices: None Review of Systems Review of Systems: All systems reviewed & are unremarkable except as noted in HPI & below Physical Exam Constitutional: WD/WN, vitals as above Eyes: PERRL, conjunctivae normal, anicteric sclerae Neck: trachea midline, no thyromegaly Respiratory: normal respiratory effort, lungs clear to auscultation Cardiovascular: RRR, no murmur, no edema Musculoskeletal: no cyanosis or clubbing, extremities motor strength 5/5 Skin: no rashes, warm and dry Neurologic: patellar DTR's 2+ bilat, sensation intact Lymphatic: no cervical or axillary lymphadenopathy Results & Data ([facility]) Vital Signs (Past 12 Hours) Vital Signs Temp Pulse Pulse Resp BP BP BP 08/02/20 07:48 36.7 C 68 20 162/75 H 08/02/20 07:46 69 08/02/20 03:29 36.8 C 64 20 162/76 H 08/02/20 00:41 36.9 C 66 16 150/75 H 08/01/20 22:20 74 08/01/20 22:12 36.8 C 74 18 171/74 H 08/01/20 21:53 76 08/01/20 21:41 36.9 C 87 18 157/88 H Pulse Ox 08/02/20 07:48 91 08/02/20 07:46 08/02/20 03:29 97 08/02/20 00:41 95 08/01/20 22:20 08/01/20 22:12 96 08/01/20 21:53 08/01/20 21:41 99 PG Care Time/CCT Total # of Minutes Spent Total Time Spent with Patient: Total time spent is greater than 50% in coordination of care (as documented) at patient's floor/unit and/or counseling patient: 30 Coding Level of Care Code 37338 Initial Inpt Care Lvl 3 Diagnoses Calculus of left ureter N20.1 Left sided abdominal pain R10.9
[2020-08-02] MEDS ORDERED: INSULIN GLARGINE SOLOSTAR 100 UNITS/ML 3 ML PEN SC ONE (12:00)
--- NOTE | 2020-08-02 15:00 | Electrocardiogram Report ---
Test Reason : Blood Pressure : / mmHG Vent. Rate : 086 BPM Atrial Rate : 086 BPM P-R Int : 134 ms QRS Dur : 090 ms QT Int : 376 ms P-R-T Axes : 007 -13 019 degrees QTc Int : 449 ms Sinus rhythm with frequent Premature ventricular complexes Anterior infarct (cited on or before 28-NOV-2017) Inferior infarct , age undetermined Abnormal ECG When compared with ECG of 28-NOV-2017 13:28, No significant change was found Confirmed by Hal Stallings ([id number]) on 08/02/2020 3:00:04 PM Referred By: Confirmed By:Hal Stallings
--- NOTE | 2020-08-02 17:00 | Hospitalist Progress Note ---
Date of Service August 02, 2020 Assessment & Plan (1) Left sided abdominal pain: (2) Hydronephrosis due to obstruction of ureter: CT abdomen pelvis reveals 7 mm obstructing calculus in mid left ureter with mild left hydroureteronephrosis, appreciate input from Urology plan for ureteric stent tomorrow , if unable to pass stone spontaneously Flomax 0.4mg @ HS no fever or chills , normal white count and renal function cont IV fluid (3) Calculus of left ureter: (4) UTI (urinary tract infection): This is a 79-year-old male who has significant past medical history of T2DM, HTN, HLD, IPMN, obstructive uropathy, chronic ITP who presents to ED secondary to abdominal pain x1 day. continue IV Rocephin 2g daily emipircally follow urine culture (5) JACQUI (acute kidney injury): resolved , with IV repeat BMP in am (6) Hypokalemia: corrected (7) Diabetes mellitus, type 2: Last A1c 7.3 on 06/30 Hold metformin, Lantus/NovoLog Per protocol Appreciate their assistance (8) Hypertension: BP elevated in ED, likely 2/2 to pain continue atenolol, amlodipine with parameters hold lisinopril until renal fxn re assessed in a.m. (9) Pulmonary nodule: There are least 2 pulmonary nodules at the left lung base measuring up to 7 mm. These are new from previous and may be inflammatory. Precautionary 3 month follow-up chest CT is recommended to document resolution. follow up with repeat CT as outpt (10) DVT prophylaxis: SCD/TEDS for now given possible procedure PCP: Kevan Dispo:possible dc home tomorrow after ureteric procedure update given to at bedside FULL CODE Admission and Anticipated Discharge Date Admission Date: August 01, 2020 Subjective Follow up visit for left ureteric obstuctive stone : flank pain is better , no nausea , no fever or chills still not able to pass the stone Review of Systems Review of Systems: All systems reviewed & are unremarkable except as noted in Subjective Physical Exam Physical Exam: Physical exam: General: No acute distress, alert awake oriented x3 HEENT: PERRLA, EOMI, Heart: Regular S1-S2, no carotid bruit, no JVD, no lower extremity edema Lungs: Clear to auscultate, no wheeze or rales Abdomen: Soft nontender, no organomegaly Extremity: No cyanosis, no deformity, normal strength 5 out of 5 with upper and lower Neuro: No focal neurological deficit normal speech, normal visual field, Motor strength : normal both upper and lower extremity, sensation intact Psych: Alert awake oriented x3, normal affect Results & Data Results & Data ([facility]) Vital Signs (Past 12 Hours) Vital Signs Temp Pulse Pulse Resp BP Pulse Ox 08/02/20 15:14 36.7 C 64 18 163/79 H 96 08/02/20 14:54 71 08/02/20 10:48 36.6 C 75 18 124/70 97 08/02/20 07:48 36.7 C 68 20 162/75 H 91 08/02/20 07:46 69
[2020-08-02] MEDS ORDERED: cefTRIAXone SODIUM 2,000 MG in DEXTROSE 5% 50 ML IV SCH (18:00)
--- NOTE | 2020-08-02 19:36 | Anesthesiology Consultation ---
Date of Service August 02, 2020 Assessment & Plan (1) Encounter for pre-operative examination: Chart Review Chart Review: Acceptable Risk for Surgery and Patient NOT seen in Pre Admission Testing covid neg 08/01/20 Consults Requested none History Surgery Operation Date: 08/03/20 07:30 Proposed Procedures p Cystoscopy(Left) - Jovan Doe MD Height/Weight Height: 5 ft 10 in Weight: 95.2 kg Allergies Allergy/AdvReac Type Severity Reaction Status Date / Time codeine Allergy Unknown ITCHING Verified 08/01/20 18:24 ofloxacin Allergy Unknown UNKNOWN Verified 08/01/20 18:24 oxytetracycline Allergy Unknown Hives Verified 08/01/20 18:24 Penicillins Allergy Unknown Hives Verified 08/01/20 18:24 Sulfa (Sulfonamide Allergy Unknown Hives Verified 08/01/20 18:24 Antibiotics) tetracycline Allergy Unknown Hives Verified 08/01/20 18:24 Medications Home Medications Medication Instructions Recorded Confirmed Last Taken acetaminophen 1,000 mg PO Q4H PRN 10/25/17 08/01/20 11/27/17 amlodipine [Norvasc] 10 mg PO QAM 10/25/17 08/01/20 11/27/17 atenolol 100 mg PO QAM 10/25/17 08/01/20 11/27/17 metformin 500 mg PO QPM 10/25/17 08/01/20 11/27/17 magnesium oxide 400 mg PO QPM 12/02/17 08/01/20 Unknown lisinopril 2.5 mg PO DAILY 08/01/20 08/01/20 Unknown Active Medications Generic Name Dose Route Start Last Admin Trade Name Freq PRN Reason Stop Dose Admin Amlodipine Besylate 10 mg 08/02/20 09:00 08/02/20 08:15 Amlodipine Besylate 5 Mg Tab PO 09/01/20 08:59 10 mg QAM PAVITHRA Administration Atenolol 100 mg 08/02/20 09:00 08/02/20 08:15 Atenolol 50 Mg Tablet PO 09/01/20 08:59 100 mg QAM PAVITHRA Administration Lactated Ringer's 1,000 mls @ 125 mls/hr 08/01/20 22:07 08/02/20 14:28 Lr IV 08/31/20 22:06 125 mls/hr .Q8H PAVITHRA Administration Ceftriaxone Sodium 2,000 mg/ 50 mls @ 100 mls/hr 08/02/20 18:00 08/02/20 18: 08 Dextrose IV 08/12/20 17:59 100 mls/hr Q24H PAVITHRA Administration Protocol Insulin Aspart 0 units 08/01/20 22:07 08/02/20 17:18 Insulin Aspart 100 Units/Ml 3 Ml Pen SC 08/31/20 22:06 4 units ACHS PAVITHRA Administration Magnesium Hydroxide 30 ml 08/01/20 22:07 08/02/20 08:20 Magnesium Hydroxide Susp 30 Ml Udc PO 08/31/20 22:06 30 ml Q12H PRN Administration Constipation Magnesium Oxide 400 mg 08/01/20 22:07 08/01/20 23:33 Magnesium Oxide 400 Mg Tab PO 08/31/20 22:06 400 mg QPM PAVITHRA Administration Senna/Docusate Sodium 1 tab 08/01/20 22:07 08/02/20 08:15 Docusate Sodium/Senna 50/8.6mg Tab PO 08/31/20 22:06 1 tab QAM PAVITHRA Administration Tamsulosin HCl 0.4 mg 08/01/20 22:07 08/01/20 23:34 Tamsulosin Hcl 0.4 Mg Cap PO 08/31/20 22:06 0.4 mg HS PAVITHRA Administration Past Medical History Medical History Chronic idiopathic thrombocytopenia CKD (chronic kidney disease) stage 3, GFR 30-59 ml/min Diabetes mellitus, type 2 Diverticular disease DIVERTICULITIS YEARS AGO, NO PROBLEMS WITH SINCE Enlarged prostate Patient POD 1 s/p Robotic Simple Prostatectomy Gross hematuria Hyperlipidemia Hypertension Obesity (BMI 30.0-34.9) Right knee DJD Past Family History Family History Other Diabetes Past Surgical History Surgical History History of prostate surgery History of total knee arthroplasty Hx of cystoscopy with laser lithotripsy-- done @ [facility] 09/22/17, no issues with anesthesia robotic prostatectomy: MAC 3. Grae 1 view. No reported complications. Social History Smoking Status: Never smoker Hx Alcohol Use: No Hx Substance Use: No substance use type: does not use Physical Exam Vital Signs Last Vital Signs Temp 36.7 C 08/02/20 15:14 Pulse 64 08/02/20 15:14 Resp 18 08/02/20 15:14 BP 163/79 H 08/02/20 15:14 Pulse Ox 96 08/02/20 15:14 Testing Laboratory Results 08/02/20 06:54 08/02/20 06:54 Urine Color Red 08/01/20 16:30 Urine Appearance Cloudy (Clear) A 08/01/20 16:30 Urine pH 5.5 (4.5-7.5) 08/01/20 16:30 Ur Specific Harshaw 1.021 (1.000-1.030) 08/01/20 16:30 Urine Protein 3+ (Negative) H 08/01/20 16:30 Urine Glucose (UA) 2+ (Negative) H 08/01/20 16:30 Urine Ketones Negative (Negative) 08/01/20 16:30 Urine Nitrite Positive (Negative) A 08/01/20 16:30 Ur Leukocyte Esterase 1+ (Negative) H 08/01/20 16:30 Urine WBC (Auto) 10-30 /hpf (0-5) H 08/01/20 16:30 Urine RBC (Auto) >30 /hpf (0-4) H 08/01/20 16:30 U Hyaline Cast (Auto) 0 /lpf (0-5) 08/01/20 16:30 U Epithel Cells (Auto) 20-30 /lpf (0-5) H 08/01/20 16:30 Urine Bacteria (Auto) Negative (Negative) 08/01/20 16:30 08/01/20 16:30 Urine Culture - Preliminary Urine,Clean Catch No growth - Less than 1,000 colonies/mL, Final report to follow. 08/02/20 08/02/20 08/02/20 16:10 11:26 07:43 POC Glucose 125 H 179 H 137 H Electrocardiogram Date: 08/01/20 DICTATED BY: Hal Stallings, DO Test Reason : Blood Pressure : / mmHG Vent. Rate : 086 BPM Atrial Rate : 086 BPM P-R Int : 134 ms QRS Dur : 090 ms QT Int : 376 ms P-R-T Axes : 007 -13 019 degrees QTc Int : 449 ms Sinus rhythm with frequent Premature ventricular complexes Anterior infarct (cited on or before 28-NOV-2017) Inferior infarct , age undetermined Abnormal ECG When compared with ECG of 28-NOV-2017 13:28, No significant change was found Confirmed by Hal Stallings ([id number]) on 08/02/2020 3:00:04 PM Other Testing Abdominal CT scan 08/01/20: IMPRESSION: 1. There is a 7 mm obstructing calculus in the mid left ureter. This causes mild left hydroureteronephrosis. 2. No additional calculi are identified in either kidney. 3. Marked prostatomegaly with evidence of chronic bladder outlet obstruction. 4. Gas within the bladder lumen is nonspecific and may be related to recent instrumentation. Additionally, there is hyperdense material within the bladder lumen that likely represents blood products. Correlate with clinical findings and urinalysis. 5. There are least 2 pulmonary nodules at the left lung base measuring up to 7 mm. These are new from previous and may be inflammatory. Precautionary 3 month follow-up chest CT is recommended to document resolution. 6. Cardiomegaly with advanced coronary artery calcification. 7. Moderate to advanced colonic diverticulosis without CT evidence of acute diverticulitis. 8. Additional findings as above.
[2020-08-02] MEDS: TAMSULOSIN HCL 0.4 MG CAP PO SCH (20:57)
[2020-08-02] MEDS: MAGNESIUM OXIDE 400 MG TAB PO SCH (20:57)
[2020-08-03] MEDS: LACTATED RINGER'S 1,000 ML IV SCH (05:03)
[2020-08-03] MEDS ORDERED: ONDANSETRON INJ 2 MG/ML 2 ML VIAL ONE (06:41)
[2020-08-03] MEDS ORDERED: fentaNYL citrate 100 MCG/2 ML VIAL ONE (06:41)
[2020-08-03] MEDS ORDERED: LIDOCAINE 2% 2 ML VIAL/AMP(20MG/ML) INFIL ONE (06:41)
[2020-08-03] MEDS ORDERED: PROPOFOL IV EMULSION 10 MG/ML 20 ML VIAL IV ONE (06:41)
[2020-08-03] MEDS: INSULIN ASPART 100 UNITS/ML 3 ML PEN SC SCH ×2 (07:13→12:06)
[2020-08-03] MEDS ORDERED: fentaNYL citrate 100 MCG/2 ML VIAL IV PRN (07:22)
[2020-08-03] MEDS ORDERED: ONDANSETRON INJ 2 MG/ML 2 ML VIAL IV PRN (07:22)
[2020-08-03] MEDS ORDERED: ATROPINE SULFATE 0.1 MG/ML 10ML SYR IV PRN (07:22)
[2020-08-03] MEDS ORDERED: ePHEDrine sulfate 50 MG/ML SYR ONE (07:55)
[2020-08-03] MEDS ORDERED: DIATRIZOATE MEGLUMINE 30% 100ML VIAL INSTIL ONE (08:03)
--- NOTE | 2020-08-03 08:08 | Post Operative Brief Note ---
Immediate Post Op Note v1 Date of Surgery August 03, 2020 Pre & Post Diagnosis Operation Date: 08/03/20 07:30 Pre-Op Diagnosis: Calculus of left ureter Post-Op Diagnosis: Calculus of left ureter I identified the patient and participated in the time-out.: Yes Procedure Operation Date: 08/03/20 07:30 Actual Procedures p Cystoscopy, Left Stent Placement, Left Ureteroscopy, Retrograde Pyelogram - Jovan Doe MD Surgeon Jovan Doe MD Strategic Advisor none Estimated Blood Loss 0 Findings Consistent with Post-Op Diagnosis
--- NOTE | 2020-08-03 08:32 | Urology Progress Note ---
Date of Service August 03, 2020 Assessment & Plan (1) Hydronephrosis due to obstruction of ureter: Stent is now in place. That will stay in place for 1-2 weeks in order to allow the ureter to dilate. Needs f/u in 1 week with KUB in office to discuss treatment options for stone: ESWL vs staged Uscope. OK for discharge later today if stable. (2) Calculus of left ureter: Admission and Anticipated Discharge Date Admission Date: August 01, 2020 Subjective Pt underwent cysto, left Uscope, and stent placement today. Ureter was too narrow making it not possible to reach the stone for definitive treatment. A stent was placed. No complications. Review of Systems Review of Systems: All systems reviewed & are unremarkable except as noted in HPI & below Physical Exam Respiratory: normal respiratory effort, lungs clear to auscultation Cardiovascular: RRR, no murmur, no edema Gastrointestinal (Abdomen): normal bowel sounds, soft, nontender, no hepatosplenomegaly Results & Data ([facility]) Vital Signs (Past 12 Hours) Vital Signs Temp Pulse Pulse Pulse Resp BP Pulse Ox 08/03/20 08:25 73 14 147/80 H 98 08/03/20 08:15 36.7 C 76 16 138/76 98 08/03/20 07:15 68 08/03/20 06:28 36.6 C 68 20 162/78 H 92 08/03/20 03:40 36.8 C 67 18 159/80 H 95 08/03/20 01:39 68 08/02/20 23:11 36.8 C 16 146/72 H 95 PG Care Time/CCT Total # of Minutes Spent Total Time Spent with Patient: Total time spent is greater than 50% in coordination of care (as documented) at patient's floor/unit and/or counseling patient: 30 Coding Level of Care Code 15670 Subseq Hosp Care Lvl 2 Diagnoses Hydronephrosis due to obstruction of ureter N13.1 Calculus of left ureter N20.1
--- NOTE | 2020-08-03 08:46 | Fluoroscopy Report ---
FL retrograde includes kub CLINICAL HISTORY: RETROGRADE, LASER, STENT COMPARISON STUDY: CT of the abdomen and pelvis August 01, 2020. FLUOROSCOPY TIME: 24 seconds. FLUOROSCOPIC IMAGES: 3 FINDINGS: Fluoroscopy was provided during left retrograde exam with ureteral stent placement. IMPRESSION: Fluoroscopy provided during left retrograde exam with ureteral stent placement. ACT 112: Negative or not required by law. Electronically signed by: Pete Betancourt M.D. 08/03/2020 8:45 AM
--- NOTE | 2020-08-03 08:56 | Operative Report (OR) ---
DATE OF OPERATION: 08/03/2020 SURGEON: Jovan Doe MD. IRON GUARDRAIL INSTALLER: None. PREOPERATIVE DIAGNOSIS: Left ureteral calculus. POSTOPERATIVE DIAGNOSIS: Left ureteral calculus. PROCEDURE: Cystoscopy, left retrograde pyelogram, left ureteroscopy, left ureteral stent placement. ANESTHESIA: General endotracheal. COMPLICATIONS: None. SPECIMENS: None. DRAINS: A 6-Luxembourger x 26 cm ureteral stent. ESTIMATED BLOOD LOSS: Minimal. CONDITION: Stable. INDICATIONS: The patient has a history of BPH and kidney stones. He underwent a transurethral resection of the prostate approximately 3 weeks ago. Over the last several days, he has had significant left sided flank pain. He came to the Emergency Department where a CT scan was performed showing a 7 mm mid ureteral calculus. Unable to pass it on his own, he now presents for surgical intervention. DESCRIPTION OF PROCEDURE: The patient was brought to the operative suite and positively identified, placed on the operating table in supine position. After the induction of general anesthesia, placed in dorsal lithotomy position. The genitalia prepped and draped in a sterile fashion and a timeout was performed. A rigid cystoscope was passed through the urethra into bladder. The urethra was normal. The prostate showed evidence of significant edema and minimal bleeding from the previous transurethral resection of the prostate. Upon gaining entrance into the bladder, I was able to identify the left ureteral orifice. This was somewhat retracted on the trigone. Attempts were made at passing a wire, but were unsuccessful due to what appeared to be some J hooking. It was very difficult to even pass the open-ended catheter into the orifice to do a retrograde pyelogram. I tried a 70-degree lens with an Anabella bridge, but also still did not have much success in passing the wire. I switched to a rigid ureteroscope and got right up next to the orifice and using that angled Glidewire, I was able to pass the wire up beyond the J hooking of the ureter into the distal ureter and up towards the renal pelvis. At this time, I backed the rigid ureteroscope out and attempted to pass the scope alongside the wire. This proved to be somewhat difficult. There was quite a band due to the enlarged prostate and the ureter was also quite snug. I got approximately 3-4 cm, but after this, the scope would not fit and it was much too snug and the scope started to undermine the mucosa. At this time, I elected to proceed with a simple stent placement and he can return for staged ureteroscopy or lithotripsy. An open-ended catheter was passed over the wire up to the proximal ureter and a retrograde pyelogram was performed. This outlined the renal pelvis. A wire was then replaced and a 6-Luxembourger x 26 cm ureteral stent was placed with a good curl seen proximally and distally. The bladder was subsequently drained. Bleeding was minimal. The patient tolerated the procedure well. Sponge and needle counts were correct, and taken to PACU in stable condition. I attest to the content of the Intraoperative Record and any orders documented therein. Any exception s are noted below.
[2020-08-03] MEDS: DOCUSATE SODIUM/SENNA 50/8.6MG TAB PO SCH (09:23)
[2020-08-03] MEDS: amLODIPine BESYLATE 5 MG TAB PO SCH (09:23)
[2020-08-03] MEDS: ATENOLOL 50 MG TABLET PO SCH (09:24)
--- NOTE | 2020-08-03 09:47 | Anesthesiology Progress Note ---
Date of Service August 03, 2020 Anesthesia Post Procedure Vital Signs Vital Signs: Temp Pulse Pulse Pulse Resp BP BP 08/03/20 09:28 36.6 C 73 16 163/77 H 08/03/20 09:17 36.6 C 71 16 154/83 H 08/03/20 08:55 37.2 C 68 16 149/75 H 08/03/20 08:45 37.2 C 70 17 146/81 H 08/03/20 08:35 71 24 153/78 H 08/03/20 08:25 73 14 147/80 H 08/03/20 08:15 36.7 C 76 16 138/76 08/03/20 07:15 68 08/03/20 06:28 36.6 C 68 20 162/78 H 08/03/20 03:40 36.8 C 67 18 159/80 H 08/03/20 01:39 68 08/02/20 23:11 36.8 C 16 146/72 H 08/02/20 19:55 37 C 69 18 160/73 H 08/02/20 15:14 36.7 C 64 18 163/79 H 08/02/20 14:54 71 08/02/20 10:48 36.6 C 75 18 124/70 Pulse Ox 08/03/20 09:28 96 08/03/20 09:17 97 08/03/20 08:55 97 08/03/20 08:45 95 08/03/20 08:35 98 08/03/20 08:25 98 08/03/20 08:15 98 08/03/20 07:15 08/03/20 06:28 92 08/03/20 03:40 95 08/03/20 01:39 08/02/20 23:11 95 08/02/20 19:55 95 08/02/20 15:14 96 08/02/20 14:54 08/02/20 10:48 97 Pain Intensity Abdomen: Pain Intensity: 4 Transfer of Care Handoff Completed per policy Notes Mental Status: alert / awake / arousable Patient Amnestic to Procedure: Yes Nausea / Vomiting: adequately controlled Pain: adequately controlled Airway Patency, RR, SpO2: stable & adequate BP & HR: stable & adequate Hydration State: stable & adequate Anesthetic Complications: no major complications apparent
[2020-08-03 10:06] LABS: Hematocrit (blood only) 35.3 % (42-52); Hemoglobin 11.9 g/dL (14.0-18.0); Mean Corpuscular Hemoglobin 29.3 pg (25-34); Mean Corpuscular Hgb Conc 33.7 g/dL (32-36); Mean Corpuscular Volume 86.9 fL (80-100); Mean Platelet Volume 9.4 fL (7.4-10.4); Platelet Count 144 K/uL (130-400); RDW Coefficient of Variation 12.5 % (11.5-14.5); RDW Standard Deviation 40.2 fL (36.4-46.3); Red Blood Count 4.06 M/uL (4.7-6.1)
[2020-08-03 10:26] LABS: BUN Creatinine Ratio 17.6 (10-20); Calcium 8.3 mg/dl (8.5-10.1); Creatinine Clr Calc Pharmacy 86.6 ml/min; Est GFR (African American) 98.1 ml/min; Est GFR (Non-African American) 84.7 ml/min; Potassium 3.9 mmol/L (3.5-5.1)
[2020-08-03] MEDS ORDERED: CIPROFLOXACIN 500 MG TAB PO STA (12:15)
--- NOTE | 2020-08-03 12:53 | Discharge Summary ---
Date of Service August 03, 2020 Admission HPI Per Admitting Provider This is a 79-year-old male who has significant past medical history of T2DM, HTN, HLD, IPMN, obstructive uropathy, chronic ITP who presents to ED secondary to abdominal pain x1 day. This morning patient developed a gradual onset left middle side of abdomen pain. The pain became constant, "I could not get comfortable." The pain did not radiate, he tried Tylenol but that did not improve his symptoms. He has felt similar symptoms in the past whenever he was diagnosed with a previous kidney stone. Currently the pain has been improved with IV Dilaudid. Nothing makes pain worse. Of significance [facility] [place] and he underwent a cystoscopy and TURP on 07/22. He was hospitalized and discharged next day on 519. He did have postop hematuria requiring chronic bladder irrigation. He was discharged home with Jackson catheter which has since been removed. He was also discharged on Levaquin once daily for 7 days. He states he took this 1 day and it made his feet feel, "funny," therefore he stopped it. He denies any fever, chills, sweats, lightheadedness, dizziness, chest pain, shortness of breath, URI symptoms, nausea, vomiting, dysuria, increased urgency or frequency with urination, melena or hematochezia. He does complain of small amount of hematuria. He thought his abdominal pain was secondary to constipation because he has not moved his bowels in 4 days. He has not tried any [id number]-[id number] stool softeners. Appetite has been poor today secondary to pain. Principal Diagnosis Ureteric Colic Obstructed stone on left ureter. Discharge Exam Physical exam: General: No acute distress, alert awake oriented x3 HEENT: PERRLA, EOMI, Heart: Regular S1-S2, no carotid bruit, no JVD, no lower extremity edema Lungs: Clear to auscultate, no wheeze or rales Abdomen: Soft nontender, no organomegaly/no flank pain Extremity: No cyanosis, no deformity, normal strength 5 out of 5 with upper and lower Neuro: No focal neurological deficit normal speech, normal visual field, Motor strength : normal both upper and lower extremity, sensation intact Psych: Alert awake oriented x3, normal affect Discharge Data Allergies Allergy/AdvReac Type Severity Reaction Status Date / Time codeine Allergy Unknown ITCHING Verified 08/01/20 18:24 ofloxacin Allergy Unknown UNKNOWN Verified 08/01/20 18:24 oxytetracycline Allergy Unknown Hives Verified 08/01/20 18:24 Penicillins Allergy Unknown Hives Verified 08/01/20 18:24 Sulfa (Sulfonamide Allergy Unknown Hives Verified 08/01/20 18:24 Antibiotics) tetracycline Allergy Unknown Hives Verified 08/01/20 18:24 Consultations 08/01/20 18:36 Consult Urology Routine 08/01/20 18:45 ED Decision to Admit Stat Procedures Performed Operation Date: 08/03/20 07:30 Actual Procedures p Cystoscopy, Left Stent Placement, Left Ureteroscopy, Retrograde Pyelogram - Jovan Doe MD Ordered Studies 08/01/20 16:03 CT abd pelvis wo con Stat 08/03/20 FL retrograde includes kub Routine Hospital Course (1) Left sided abdominal pain: (2) Hydronephrosis due to obstruction of ureter: CT abdomen pelvis reveals 7 mm obstructing calculus in mid left ureter with mild left hydroureteronephrosis, no fever or chills, normal white count , renal function improved to baseline appreciate input from Urology s/p left ureteric stent placement today doing well post op , no flank pain stable to be discharged home , follow up with Urology in 1-2 weeks for EWSL /Cystoscopy /ureteric stent removal (3) Calculus of left ureter: (4) UTI (urinary tract infection): UA grossly positive , due to obstructed ureteric 7 mm stone on left s/p ureteric stent placement was treated with IV rocephin on admission urine culture no growth s/p ureteric stent placement d/w urology -due to Urologic procedure , still has obstructed stone on left ureter , high risk for complicated UTI PO cipro for 7 days (5) JACQUI (acute kidney injury): due to obstructed ureteric stone resolved , with IV renal function improved to baseline (6) Hypokalemia: corrected (7) Diabetes mellitus, type 2: Last A1c 7.3 on 06/30 Hold metformin, Lantus/NovoLog Per protocol Appreciate their assistance (8) Hypertension: BP elevated in ED, likely 2/2 to pain continue atenolol, amlodipine with parameters lisinopril resumed , as renal function improved (9) Pulmonary nodule: There are least 2 pulmonary nodules at the left lung base measuring up to 7 mm. These are new from previous and may be inflammatory. Precautionary 3 month follow-up chest CT is recommended to document resolution. follow up with repeat CT as outpt (10) DVT prophylaxis: SCD/TEDS PCP: Kevan Dispo:stable to be discharged home today FULL CODE Total Time Total Time Spent Total Time Spent (In Minutes): 35 mins Total Time Includes: Examination of the Patient, Discharge Planning and Medication Reconciliation Discharge Plan Discharge Items Patient Disposition: Home - Self-Care Reason For Visit: OBSTRUCTING CALCULUS L URETER Discharge Diagnosis: Ureteric Colic Obstructed stone on left ureter. Activity: Resume your previous activity Non-emergency contact: Primary Care Provider Call non-emergency contact if: you have any medication questions Follow-up/Referrals: Jovan Doe MD [Surgeon] - (Urology follow-up in 1-2 weeks, office will call with appointment) Javier Mathur MD [Primary Care Provider] - Diet: Carb Consistent or DM2 Addtl Attending Provider Instructions: Please take all medications as instructed on discharge list below. It is recommended that you follow-up with your primary care physician within 1-2 weeks of hospital discharge to ensure you are still doing well. PLEASE TAKE PROBIOTICS ( OVER THE COUNTER ) WHILE TAKING ANTIBIOTICS TO PREVENT DIARRHEA /LOOSE STOOL Please call if you have any questions or problems. You can reach a [facility] hospitalist on duty at [facility] 24 hours a day by calling [phone] Do not take group of medications belonging to NSAIDs group -can cause worsening of your kidney function. List Of these medications includes but not limited to: Aspirin Diclofenac Ibuprofen, Motrin, Advil Toradol,ketorolac Naproxen, Aleve, Naprosyn You can take Tylenol as needed for pain or fever When buying [id number] pain medications please consult with pharmacy if you are not sure regarding ingredients, as a lot of the pain medications have combination of NSAIDs and Tylenol. Addtl Gasoline Tractor Operator Provider Instructions: You have a stent placed in Left Ureter for obstructed stone Ureter stent will remain 1-2 weeks in order to allow the ureter to dilate. You may notice blood in urine while standing placed Common to experience irritation/burning sensation every time you urinate for the stent, Urology follow-up in [address] Faith , office will call with appointment, repeat x-ray of abdomen will be done to assess placement of the stone and the ureteric stent, and urology discussed the option for stone removal. Please call urology office if you start to experience worsening of pain, fever chills or worsening of blood in urine Pending Studies at Discharge: No Stand-Alone Forms: My [facility] [employer] - It's what's in store, Smoking Cessation Medications and DC Order Prescriptions: New tamsulosin 0.4 mg Capsule 0.4 mg PO HS 30 Days Qty: 30 RF: 0 ciprofloxacin HCl [Cipro] 500 mg tablet 500 mg PO BID Qty: 14 RF: 0 Continued amlodipine [Norvasc] 10 mg Tablet 10 mg PO QAM RF: 0 atenolol 100 mg Tablet 100 mg PO QAM RF: 0 metformin 500 mg Tablet Extended Release 24 Hr 500 mg PO QPM RF: 0 acetaminophen 500 mg Capsule 1,000 mg PO Q4H PRN (Reason: Pain) RF: 0 magnesium oxide 400 mg (241.3 mg magnesium) Tablet 400 mg PO QPM RF: 0 lisinopril 2.5 mg tablet 2.5 mg PO DAILY RF: 0 Discharge Orders: Discharge Order (Routine); Ordered 08/03/20 Ordered By: Kelly Friend Admission Data Admit Date/Time: 08/01/20 18:36 Attending Provider: Kelly Friend Admit Provider: Kelly Friend Primary Care Provider: Javier Mathur Other Providers: Jovan Doe ; Kelly Friend Other Interventions: Discharge Summary Assessment (RN) Last Done: 08/03/20 12:28
[2020-08-03] MEDS ORDERED: INSULIN GLARGINE SOLOSTAR 100 UNITS/ML 3 ML PEN SC SCH (13:30)
== END 2020-08-03 15:04 | disposition home or self-care (01) | DRG 660 ==
LOC: ED 15:38 → 2W 18:36